=== PATIENT | male | born 1960 | race Caucasian/White ===

== ENCOUNTER → 2016-07-25 | Outpatient (CLI) | payer MEDICARE, OTHER ==
[2016-07-25 13:16] VITALS: BP 139/92; PULSE 81; RESP 18; TEMP 98.3
--- NOTE | 2016-07-25 13:56 | P.PN ---
Subjective This is follow-up visit for this patient with a history of severe and chronic low back pain secondary to lumbar degenerative disc disease , and patient had a history of lumbar fusion surgery, and cervical fusion surgery, L3 is complaining of severe low back pain, with radiation to the left lower extremity , with occasional numbness and tingling sensation, he is able to ambulate, he denies any motor or sensory deficit, he denies any fever or night sweats, no change in the bowel movement or urination, currently is complaining of localized neck pain, but there is no weakness in the upper extremities, and is currently on pain medications 1-oxycodone 15 mg every 6 hours , he tried Neurontin in the past without any benefit and Lyrica and Cymbalta without any benefit , Patient denies any side effects of the medication, denies excessive drowsiness or sleepiness, denies suicidal ideation, and reports that the current pain medication is NOT helping To control the pain and improve activity of daily living Physical Examinations : 1-Constitutiona : Cooperative , not in acute distress . 2-HEENT : nech ; supple , no Lymphadenopathy , no Thyromegaly , normal thyroid size . eyes : no ptosis , no icterus, no photophobia . ENT : normal of hearing , normal oropharynx , no Thrush . 3- Respiratory : Chest clear to auscultations Bilaterally , no wheezing , no Rhonchi . 4- Cardiovascular : regular rate and rhythem , S1 , S2 , no S3 , no S4. 5- Gastrointestinal : abdomen soft no tenderness , bowel sounds positive all four quadrents , no organomegally . 6- Genitourinary : Defferred . 7- neurologic : Cranial nerve II to XII intact , no focal neurological deffecit . 8-psychatric : alert , oriented X 3 , appropriate affect , intact judgment and insight . 9-Lymphatic : no Lymphadenopathy . 10- musculoskeltal : exams of the cervical spine = motor strength normal bilateral upper extremities facet loading test cervical area positive. Positive trigger points in the cervical paravertebral muscles mainly in the right side exams of the Lumber spine = motor strength lower extremities ,thigh and legs .5/5 deep tendon reflexes : normal Knee Jerk , normal ankle Jerk . lumber facet Loading Test positive strait leg raising test positive at 30 degree LT , negative on the right side , Fabere test negative RT and positive LT . 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 Myofascial pain syndrome and cervical area - diagnoses, prognosis, and treatment options including but not limited to physical therapy, surgical interventions, interventional therapies , and medication management including narcotics and adjuvant medication were discussed with the patient and all The questions answered -medication management = issue should continue his medication oxycodone 15 mg every 6 hours (prescription from his primary care ) procedure= patient could benefit from caudal epidural steroid injection with lysis of epidural adhesions which will be done under fluoroscopy guidance, and also patient could benefit from trigger point injections cervical paravertebral muscles Objective - Vital Signs Vital signs: Vital Signs Temp 98.3 F 07/25/16 13:05 Pulse 81 07/25/16 13:05 Resp 18 07/25/16 13:05 BP 139/92 07/25/16 13:05 Pulse Ox Intake & Output 07/24/16 07/25/16 07/25/16 18:59 06:59 18:59 Weight 108.862 kg
== END | disposition home or self-care (01) ==
LOC: PNWHC3 12:43
PROVIDERS: ATTEND Specialist
DX: M96.1 Postlaminectomy syndrome, not elsewhere classified (principal); M79.1 Myalgia; M51.36 Other intervertebral disc degeneration, lumbar region; Z98.1 Arthrodesis status
CPT/HCPCS: 99211

== ENCOUNTER → 2016-09-13 | Outpatient (CLI) | payer MEDICARE, OTHER ==
--- NOTE | 2016-09-13 12:19 | XR ---
EXAMINATION TYPE: XR knee complete LT DATE OF EXAM: 09/13/2016 11:28 AM CLINICAL HISTORY: Sharp pain and difficulty walking. TECHNIQUE: Three views of the left knee are obtained. COMPARISON: Left knee x-ray January 15, 2015 FINDINGS: There is no acute fracture/dislocation evident in left knee. There is mild to moderate tri compartment joint space loss and spurring redemonstrated. The overlying soft tissue appears unremark able. IMPRESSION: There is stable mild to moderate tricompartment degenerative change in the left knee.
== END ==
LOC: RADXRMAIN 11:10
PROVIDERS: ATTEND Family Medicine
DX: M17.12 Unilateral primary osteoarthritis, left knee (principal)

== ENCOUNTER 2016-10-03 06:19 | Day surgery (SDC) | payer MEDICARE, OTHER ==
[2016-09-29 15:15] VITALS: BMI 35.4
[2016-10-03 07:10] VITALS: RESP 16; TEMP 98.5
[2016-10-03] MEDS ORDERED: IOHEXOL 180 MG/ML 1 ML ML ONE (07:43)
[2016-10-03] MEDS ORDERED: TRIAMCINOLONE ACETONIDE 40 MG/ML 1 ML VIAL ONE (07:43)
[2016-10-03] MEDS ORDERED: LACTATED RINGERS 1,000 ML IV SCH (07:45)
[2016-10-03 08:06] VITALS: BP 135/84; PULSE 58
--- NOTE | 2016-10-03 08:32 | FL ---
EXAMINATION TYPE: FL guided pain mgmt statistic DATE OF EXAM: 10/03/2016 8:03 AM CLINICAL HISTORY: Low back and sacral pain. TECHNIQUE: Fluoroscopy. COMPARISON: None. FINDINGS: Fluoroscopic guidance was provided during pain relief procedure performed by Dr. Gordon . A total of 10 seconds of fluoroscopic time was utilized during the procedure and 3 spot images are ac quired. Images acquired shows needle localization at level of lower sacrum from posterior inferior a pproach. There is partial visualization of surgical change in the lower lumbar spine. IMPRESSION: As Above.
--- NOTE | 2016-10-03 08:35 | P.PCN ---
Date of Procedure: 10/03/16 Anesthesia: local Surgeon: Josue Gordon Pathology: none sent Condition: stable Disposition: PACU Description of Procedure: PREOP DIAGNOSIS: Lumbar postlaminectomy syndrome POSTOP DIAGNOSIS: Lumbar postlaminectomy syndrome PROCEDURE: Caudal epidural steroid injection with epidurolysis and epidurogram under fluoroscopic guidance ANESTHESIA: Local with 1% lidocaine EBL: Minimal. PROCEDURE INDICATION: The patient with post-laminectomy syndrome with low back pain and radiculopathy radiating down in both legs, here for a caudal epidural steroid injection with epidurolysis, #2 in series. Patient does not use any blood thinning medications. PROCEDURE DESCRIPTION: The patient was seen and identified in the preoperative area. Risks, benefits, complications, and alternatives were discussed with the patient including but not limited to bleeding, infection, nerve damage, incomplete pain relief, and allergic reactions to medications. The patient agreed to proceed with the procedure and signed the consent after all questions were answered. IV was started, and vital signs were stable. Patient was taken to the OR and time out was completed to verify proper patient , procedure, laterality of pain, and allergies. The patient was placed in the prone position on procedure table and a pillow was placed under the abdomen to reduce lumbar lordosis. The lumbosacral area was prepped and draped in the usual sterile fashion. Critical pause was taken. Vital signs were closely monitored during the procedure. Fluoroscopic camera was placed in the lateral view and the anterior-posterior plates of the sacrum were identified with infiltration of the area overlying the sacral hiatus with 1% lidocaine .A 16 gauge RK epidural needle was used to advance through the sacral hiatus into the caudal epidural space. Omnipaque 300 dye 2cc was injected and the position of the needle was verified to be in the midline. A Racz catheter was introduced into the epidural space and was advanced towards the L5-S1 interspace under direct fluoroscopic guidance. Multiple passes were made with the catheter for lysis of epidural adhesions. Kenalog 40mg with 3ml of preservative free Lidocaine 1% and 6 ml of preservative free normal saline was injected slowly. Additional spread was seen to L3 under fluoroscopy. The needle and the catheter were withdrawn intact. EPIDUROGRAM: Omnipaque 300 dye 2 ml was injected with spread of the dye into the caudal epidural space and with spread cutoff at S1 prior to epidurolysis. Post epidurolysis dye 2 ml was injected and spread was seen to L5.There was further spread of the solution together with the dye above the L4. COMPLICATIONS: None. DISPOSITION / PLANS: The patient was placed in a supine position and transferred to the recovery area in a stable condition for observation and was discharged from the recovery room after meeting discharge criteria. Home discharge instructions given to the patient by the staff. The patient was reexamined prior to discharge. The patient will schedule a third caudal MOSES with lysis in 4-6 weeks. I did not perform any trigger point injections today as the last set done with previous caudal MOSES did not help him at all.
== END 2016-10-03 08:16 | disposition home or self-care (01) ==
LOC: ORPAIN 06:19
PROVIDERS: ATTEND Anesthesiology
DX: M96.1 Postlaminectomy syndrome, not elsewhere classified (principal); Z88.8 Allergy status to other drugs, medicaments and biological substances
CPT/HCPCS: 62264; J3301; Q9965

== ENCOUNTER 2016-11-10 06:39 | Day surgery (SDC) | payer MEDICARE, OTHER ==
[2016-10-26 15:53] VITALS: BMI 35.4
[~2016-11-10 06:39] MED LIST: LACTATED RINGERS 1,000 ML IV SCH
[2016-11-10 06:55] VITALS: TEMP 98
[2016-11-10] MEDS ORDERED: IOHEXOL 180 MG/ML 1 ML ML ONE (07:05)
[2016-11-10] MEDS ORDERED: DEXAMETHASONE SOD PHOS (MDV) 100 MG/10 ML VIAL ONE (07:05)
[2016-11-10] MEDS ORDERED: BUPIVACAINE (PF) 0.5% 30 ML VIAL ONE (07:05)
[2016-11-10 07:49] VITALS: BP 135/83; PULSE 71; RESP 18
--- NOTE | 2016-11-10 07:53 | FL ---
FLUOROSCOPY 14 seconds of fluoroscopy time were utilized during Pain Injection. 2 images document the procedure.
--- NOTE | 2016-11-10 10:39 | P.PCN ---
Date of Procedure: 11/10/16 Preoperative Diagnosis: Postoperative Diagnosis: Procedure(s) Performed: PREOP DIAGNOSIS: 1- Lumbar postlaminectomy syndrome POSTOP DIAGNOSIS:1- Lumbar postlaminectomy syndrome PROCEDURE: Caudal epidural steroid injection with epidurolysis and epidurogram under fluoroscopic guidance ANESTHESIA: Local with bupivacaine 0.5% 5 ML ( pateints wanted NO sedations ) EBL: Minimal. PROCEDURE INDICATION: The patient with post-laminectomy syndrome with low back pain and radiculopathy radiating down in both legs, here for a caudal epidural steroid injection with epidurolysis. PROCEDURE DESCRIPTION: The patient was seen and identified in the preoperative area. Risks, benefits, complications, and alternatives were discussed with the patient. The patient agreed to proceed with the procedure and signed , and vital signs were stable. Patient was taken to the OR and time out was completed. The patient was placed in the prone position on procedure table and a pillow was placed under the abdomen to reduce lumbar lordosis. The lumbosacral area was prepped and draped in the usual sterile fashion. Vital signs were closely monitored during the procedure. lateral view and the anterior-posterior plates of the sacrum were identified with infiltration of the area overlying the sacral hiatus with bupivacaine 0.5% .A 17 gauge RK epidural needle was used to advance through the sacral hiatus into the caudal epidural space. Omnipaque 180 dye. 2cc was injected and the position of the needle was verified to be in the midline. A Racz catheter was introduced into the epidural space and was advanced towards the L5-S1 interspace under direct fluoroscopic guidance. Multiple passes were made with the catheter for lysis of epidural adhesions. Kenalog 80 mg with 3ml of preservative free bupivacaine 0.5% 2 ml and 5 ml of preservative free normal saline was injected slowly. Additional spread was seen to L4 under fluoroscopy. The needle and the catheter were withdrawn intact. EPIDUROGRAM: Omnipaque 180 mg dye 2 ml was injected with spread of the dye into the caudal epidural space and with spread cutoff at L5 prior to epidurolysis. Post epidurolysis dye 2 ml was injected and spread was seen to L3- 4.There was further spread of the solution together with the dye above the L3 COMPLICATIONS: None. DISPOSITION / PLANS: The patient was placed in a supine position and transferred to the recovery area in a stable condition for observation and was discharged from the recovery room after meeting discharge criteria. Home discharge instructions given to the patient by the staff. The patient was reexamined prior to discharge. The patient will schedule a follow up in the clinic in 2-4 weeks. Implants: Indications for Procedure: Operative Findings: Description of Procedure:
== END 2016-11-10 08:02 | disposition home or self-care (01) ==
LOC: ORPAIN 06:39
PROVIDERS: ATTEND Specialist
DX: M96.1 Postlaminectomy syndrome, not elsewhere classified (principal)
CPT/HCPCS: 62264; Q9965; J1100

== ENCOUNTER 2017-01-16 08:44 | Day surgery (SDC) | payer MEDICARE, OTHER ==
[2017-01-11 14:53] VITALS: BMI 36.5
[2017-01-16 09:14] VITALS: RESP 18; TEMP 97.9
[2017-01-16] MEDS ORDERED: LIDOCAINE 1% 20 ML VIAL (10MG/ML) FOR IV START INTRADERMA ONE (09:20)
[2017-01-16] MEDS ORDERED: PROPOFOL 10 MG/ML 20 ML VIAL IV ONE (09:32)
[2017-01-16] MEDS ORDERED: LIDOCAINE 1% INJ 10MG/ML (20 ML MDV) ONE (09:32)
--- NOTE | 2017-01-16 09:34 | P.GSHP ---
History of Present Illness H&P Date: 01/16/17 Chief Complaint: Screening colonoscopy This is a 56-year-old male referred from Dr. Armas. Patient resents today for screening colonoscopy. He denies any significant GI complaints. Past Medical History Past Medical History: Chest Pain / Angina, GERD/Reflux, Hyperlipidemia, Hypertension, Osteoarthritis (OA), Sleep Apnea/CPAP/BIPAP Additional Past Medical History / Comment(s): Chronic back pain and problems. Does not use CPAP. no current problems w/chest pain History of Any Multi-Drug Resistant Organisms: MRSA Date of last positivie culture/infection: 2011 MDRO Source:: ABD. Past Surgical History: Appendectomy, Back Surgery, Cholecystectomy, Heart Catheterization, Hernia Repair, Orthopedic Surgery Additional Past Surgical History / Comment(s): Posterior lumbar decompression and fusion transforaminal lumbar interbody fusion L4-5. NECK AND LT SHOULDER SURG. Past Anesthesia/Blood Transfusion Reactions: No Reported Reaction Additional Past Anesthesia/Blood Transfusion Reaction / Comment(s): NO FAMILY HX KNOWN - pt adopted. Smoking Status: Never smoker - Past Family History Father Family Medical History: Unable to Obtain Additional Family Medical History / Comment(s): Pt was adopted. Mother Family Medical History: Unable to Obtain Additional Family Medical History / Comment(s): Pt was adopted. Medications and Allergies Home Medications Medication Instructions Recorded Confirmed Type QUEtiapine [SEROquel] 50 mg PO HS 01/13/14 01/16/17 History Sertraline HCl 100 mg PO DAILY 07/16/14 01/16/17 History oxyCODONE HCL [oxyCODONE HCL] 15 mg PO QID 10/05/15 01/16/17 History Allergies Allergy/AdvReac Type Severity Reaction Status Date / Time lorazepam Allergy AGITATION Verified 01/11/17 14:45 Surgical - Exam Vital Signs Temp Pulse Resp BP Pulse Ox 97.9 F 87 18 136/91 97 01/16/17 09:13 01/16/17 09:13 01/16/17 09:13 01/16/17 09:13 01/16/17 09:13 - General well developed, no distress - Eyes PERRL - ENT normal pinna - Neck no masses - Respiratory normal expansion - Cardiovascular Rhythm: regular - Abdomen Abdomen: soft, non tender Assessment and Plan Plan: We'll perform screening colonoscopy.
--- NOTE | 2017-01-16 09:57 | P.OP ---
Date of Procedure: 01/16/17 Preoperative Diagnosis: Screening colonoscopy Postoperative Diagnosis: Right colon polyp Procedure(s) Performed: Colonoscopy Implants: Anesthesia: MAC Surgeon: Tong Lee Pathology: other (Right colon polyp) Condition: stable Disposition: PACU Indications for Procedure: Operative Findings: Description of Procedure: The patient's placed on the endoscopy table lateral position. He received IV sedation. Digital rectal exam was performed which revealed no abnormalities. The prostate was symmetric without nodules. The flexible colonoscope was then placed patient anus and passed throughout the colon. The colon was quite tortuous. The ileocecal valve was not visualized. The scope slowly be advanced into the proximal right colon. In the right colon there was a small sessile polyp was removed the forcep. Scope was withdrawn and the remainder of the ascending colon, transverse colon and descending colon appeared normal. The scope was then brought back the sigmoid colon this appeared normal. Scope was withdrawn from patient and the rectum was normal. Scope was then removed from the patient.
[2017-01-16 10:16] VITALS: BP 127/86; PULSE 79
== END 2017-01-16 10:55 | disposition home or self-care (01) ==
LOC: ORWHC2ENDO 08:44
PROVIDERS: ATTEND Surgery
DX: Z12.11 Encounter for screening for malignant neoplasm of colon (principal); D12.2 Benign neoplasm of ascending colon; Q43.8 Other specified congenital malformations of intestine; G47.30 Sleep apnea, unspecified; Z79.891 Long term (current) use of opiate analgesic; Z79.899 Other long term (current) drug therapy; Z88.8 Allergy status to other drugs, medicaments and biological substances
CPT/HCPCS: 88305; 45380; J2001; J2704

== ENCOUNTER 2017-09-05 16:15 | Emergency (ER) | payer MEDICARE, OTHER ==
[2017-09-05 16:24] VITALS: TEMP 98.6
[2017-09-05] MEDS ORDERED: MORPHINE SULFATE 4 MG/ML SYRINGE IM STA (16:36)
[2017-09-05] MEDS ORDERED: KETOROLAC 60 MG/2 ML VIAL IM STA (16:36)
[2017-09-05] MEDS ORDERED: DIAZEPAM 5 MG TAB PO STA (16:36)
--- NOTE | 2017-09-05 16:49 | ED ---
General Adult HPI - General Chief complaint: Neck Pain/Injury Stated complaint: Neck pain Time Seen by Provider: 09/05/17 16:27 Source: patient, RN notes reviewed Mode of arrival: ambulatory Limitations: no limitations - History of Present Illness Initial comments: Patient 56-year-old male significant past medical history for chronic neck pain , presents into the emergency room today with a chief complaint of increased pain and stiffness to his neck. States he began feeling a little bit last night before going to bed. States he woke up around 2 AM with increased pain. He states worse with any movements of rotation of the neck. Patient states he did take his oxycodone with little relief the symptoms. Patient denies any other complaints or symptoms. Some chronic numbness tingling going down into the hands and is not a new finding. He denies any injury or trauma. Patient denies any recent fever, chills, shortness of breath, chest pain, back pain, abdominal pain, nausea or vomiting, headaches or visual changes, or any other complaints. - Related Data Home Medications Medication Instructions Recorded Confirmed oxyCODONE HCL [oxyCODONE HCL] 15 mg PO QID 10/05/15 09/05/17 Bisoprol/Hydrochlorothiazide 1 tab PO DAILY 09/05/17 09/05/17 [Bisoprolol-Hctz 5-6.25 mg Tab] Previous Rx's Medication Instructions Recorded Cyclobenzaprine [Flexeril] 10 mg PO TID #20 tab 09/05/17 Dexamethasone 0.75 mg PO DIRECTED #12 tablet 09/05/17 Ibuprofen [Motrin] 800 mg PO Q6HR #30 tab 09/05/17 Allergies Allergy/AdvReac Type Severity Reaction Status Date / Time lorazepam Allergy AGITATION Verified 09/05/17 16:45 Review of Systems ROS Statement: Those systems with pertinent positive or pertinent negative responses have been documented in the HPI. ROS Other: All systems not noted in ROS Statement are negative. Past Medical History Past Medical History: Chest Pain / Angina, GERD/Reflux, Hyperlipidemia, Hypertension, Osteoarthritis (OA), Sleep Apnea/CPAP/BIPAP Additional Past Medical History / Comment(s): Chronic back pain and problems. Does not use CPAP. no current problems w/chest pain History of Any Multi-Drug Resistant Organisms: MRSA Date of last positivie culture/infection: 2011 MDRO Source:: ABD. Past Surgical History: Appendectomy, Back Surgery, Cholecystectomy, Heart Catheterization, Hernia Repair, Orthopedic Surgery Additional Past Surgical History / Comment(s): Posterior lumbar decompression and fusion transforaminal lumbar interbody fusion L4-5. NECK AND LT SHOULDER SURG. Past Anesthesia/Blood Transfusion Reactions: No Reported Reaction Additional Past Anesthesia/Blood Transfusion Reaction / Comment(s): NO FAMILY HX KNOWN - pt adopted. Past Psychological History: Depression Smoking Status: Never smoker Past Alcohol Use History: Occasional Past Drug Use History: None Reported - Past Family History Father Family Medical History: Unable to Obtain Additional Family Medical History / Comment(s): Pt was adopted. Mother Family Medical History: Unable to Obtain Additional Family Medical History / Comment(s): Pt was adopted. General Exam - General Exam Comments Initial Comments: General: The patient is awake and alert, in no distress, and does not appear acutely ill. Eye: Pupils are equal, round and reactive to light, extra-ocular movements are intact. No nystagmus. There is normal conjunctiva bilaterally. No signs of icterus. Ears, nose, mouth and throat: There are moist mucous membranes and no oral lesions. Neck: The neck is supple, there is no tenderness or JVD. Cardiovascular: There is a regular rate and rhythm. No murmur, rub or gallop is appreciated. Respiratory: Lungs are clear to auscultation, respirations are non-labored, breath sounds are equal. No wheezes, stridor, rales, or rhonchi. Musculoskeletal: Patient has limited range of motion of the cervical spine due to pain. Pain reproduced with rotation to the left and right. Strength 5/5. Sensation intact. Pulses equal bilaterally 2+. Neurological: A&O x 3. CN II-XII intact, There are no obvious motor or sensory deficits. Coordination appears grossly intact. Speech is normal. Skin: Skin is warm and dry and no rashes or lesions are noted. Psychiatric: Cooperative, appropriate mood & affect, normal judgment. Limitations: no limitations Course Vital Signs 09/05/17 16:23 Temperature 98.6 F Pulse Rate 126 H Respiratory 24 Rate Blood Pressure 139/97 O2 Sat by Pulse 96 Oximetry Medical Decision Making - Medical Decision Making Patient reexamined at this time shows no signs of distress. Patient does admit to improvement after morphine, Toradol, Valium here in emergency room. Patient' s pain is worse with rotation. There was no injury or trauma. His x-rays are unremarkable. He does plan to follow-up with his orthopedic doctor has an appointment this coming Sunday. At this time patient's symptoms are improving. Will be continued on muscle relaxers, anti-inflammatories, given a steroid for the inflammation. He does have pain medication of oxycodone at home that he can use. Advised return here to the emergency room if any symptoms increase worsen or for any other concerns. Disposition Clinical Impression: Torticollis Disposition: HOME SELF-CARE Condition: Good Instructions: Spasmodic Torticollis (ED) Additional Instructions: Please use medication as discussed. Please follow-up with orthopedic/family doctor in the next 2 days of symptoms have not improved. Please return to emergency room if the symptoms increase or worsen or for any other concerns. Prescriptions: Cyclobenzaprine [Flexeril] 10 mg PO TID #20 tab Dexamethasone 0.75 mg PO DIRECTED #12 tablet Ibuprofen [Motrin] 800 mg PO Q6HR #30 tab Referrals: Son Armas MD [Primary Care Provider] - 1-2 days Time of Disposition: 17:57
--- NOTE | 2017-09-05 17:10 | XR ---
PROCEDURE: XR cervical spine limited, 3V DATE AND TIME: 09/05/2017 5:04 PM REFERRING PHYSICIAN: Maxwell Damian CLINICAL INDICATION: PHH, Pain TECHNIQUE: Open-mouth odontoid, lateral, and AP views. COMPARISON: None FINDINGS: C4-7 anterior fusion with fusion plate hardware noted. The hardware is intact. There is no malalignment. No evidence of fracture. No incidental findings. IMPRESSION: NO ACUTE PROCESS.
[2017-09-05 18:08] VITALS: BP 136/89; PULSE 110; RESP 18
== END 2017-09-05 18:05 | disposition home or self-care (01) ==
LOC: EC 16:15
DX: M43.6 Torticollis (principal); R20.2 Paresthesia of skin; R20.0 Anesthesia of skin; I10 Essential (primary) hypertension; G89.29 Other chronic pain; Z79.891 Long term (current) use of opiate analgesic; Z79.899 Other long term (current) drug therapy; Z88.8 Allergy status to other drugs, medicaments and biological substances; Z86.14 Personal history of Methicillin resistant Staphylococcus aureus infection; Z98.890 Other specified postprocedural states
CPT/HCPCS: 72040; 99283; 96372 ×2; J2270; J1885

== ENCOUNTER 2017-12-26 21:04 | Emergency (ER) | payer MEDICARE, OTHER ==
[2017-12-26 21:44] VITALS: BP 126/81; PULSE 108; RESP 17; TEMP 98.2
--- NOTE | 2017-12-27 11:18 | XR ---
EXAMINATION TYPE: XR foot limited RT DATE OF EXAM: 12/27/2017 CLINICAL HISTORY: Penetrating injury rule out foreign body TECHNIQUE: Frontal and lateral images of the right foot are obtained. COMPARISON: None FINDINGS: There is no acute fracture/dislocation evident in the right foot. There is marked flexion of the distal second through fifth toes. There is advanced joint space loss first metatarsophalangeal joint. Unfused apophysis near medial proximal navicular is present. The overlying soft tissue appear s unremarkable without radiodense foreign body identified. Tiny inferior calcaneal spur noted IMPRESSION: There is no metallic soft tissue foreign body identified.
== END 2017-12-26 23:30 | disposition home or self-care (01) ==
LOC: EC 21:04
DX: S91.331A Puncture wound without foreign body, right foot, initial encounter (principal); Z23 Encounter for immunization; W22.8XXA Striking against or struck by other objects, initial encounter; Y92.89 Other specified places as the place of occurrence of the external cause
CPT/HCPCS: 90471; 99283

== ENCOUNTER → 2018-04-30 | Outpatient (CLI) | payer MEDICARE, OTHER ==
[2018-04-30 12:11] VITALS: BP 117/82; PULSE 73; RESP 18
--- NOTE | 2018-04-30 12:46 | P.PAINPG ---
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, and he is complaining of severe neck pain with radiation to the upper extremity associated with numbness and tingling sensation, patient had cervical fusion surgery done several years ago We have done an interventional pain procedure Caudal Epidural steroid injection with lysis of epidural adhesions and he had excellent pain relief after the injection The patient currently on oxycodone 15 mg every 6 hours , Motrin 800 mg every 8 hours Patient denies any side effect of the medication , patient denies any excessive drowsiness or sleepiness, patient denies any suicidal ideation, Patient reported that the current medication is helping to control the pain and improve the activity of daily livings, Patient denies any motor or sensory deficit, denies any change in the bowel movement or urination, patient denies any fever or night sweats. Objective - Vital Signs Vital signs: Vital Signs Temp Pulse 73 04/30/18 12:04 Resp 18 04/30/18 12:04 BP 117/82 04/30/18 12:04 Pulse Ox 95 04/30/18 12:04 Intake & Output 04/29/18 04/30/18 04/30/18 18:59 06:59 18:59 Weight 113.398 kg - Exam Physical Examinations : 1-Constitutiona : Cooperative , not in acute distress . 2-HEENT : nech ; supple , no Lymphadenopathy , normal thyroid size . eyes : no ptosis , no icterus, no photophobia . ENT : normal of hearing , normal oropharynx , no Thrush . 3- Respiratory : Chest clear to auscultations Bilaterally , no wheezing , no Rhonchi . 4- Cardiovascular : regular rate and rhythem , S1 , S2 , no S3 , no S4. 5- Gastrointestinal : abdomen soft no tenderness , bowel sounds , no organomegally . 6- Genitourinary : Defferred . 7- neurologic : Cranial nerve II to XII intact , no focal neurological deffecit . 8-psychatric : alert , oriented X 3 , appropriate affect , intact judgment and insight . 9-Lymphatic : no Lymphadenopathy . 10- musculoskeltal : Cervical Spine motor stregnth in the deltoid and biceps, normal right side , normal Left side motor stregnth biceps and the wrist extensors normal right side ,normal left side . motor stregnth in the triceps muscle . normal Right side , normal Left side deep tendon reflexes normal at the biceps , normal at Brachioradialis , normal at triceps. positive cervical facet loading test . Lumber spine moter stegnth lower extremities , thigh and legs 5/5 Right side , 5/5 Left side deep tendon reflexes : normal Knee Jerk , normal ankle Jerk positive lumber facet Loading Test Range of motion of the lumbar spine Flexion 30 degrees, extension 10 degrees strait leg raising test , positive at 30 degree left side, negative on the right side Fabere test positive RT and positive LT . Assessment and Plan Plan: Assessment and plan= chronic low back pain secondary to lumbar failed back surgery syndrome Chronic neck pain secondary to failed back surgery syndrome cervical area Patient will be good candidate to have caudal epidural steroid injections with lysis of epidural adhesions , procedure risk and benefits and alternatives discussed with the patient he agreed with the preceding, in the future patient will be good candidate to have cervical epidural steroid injection. Patient currently using Motrin 800 mg every 8 hours when necessary and oxycodone 15 mg every 6 hours , is getting prescription refills from his primary care and he denies any side effect of the medication. Time with Patient: Less than 30 PQRS Measure Charge Sheet Measure #130: Documentation of Current Meds in Medical Chart: Patient's medications documented in chart Measure #226: Tobacco Use: Screen & Cessation Intervention: Pt screened for tobacco use AND intervention given Measure #111: Pneumonia Vaccination: Pneumococcal vaccine NOT administered or previously given Measure #47: Advance Care Plan: Advance care planning discussed & documented, pt chose/unable to give Measure #412: Opioid Treatment Agreement: No documentation of signed opioid treatment agreement Measure #408: Opioid Therapy Follow-up Evaluation: Patient had NO f/u eval minimum every 3 months during opioid therapy Measure #317: Preventitive Care & Scrn High Bld Press & F/U: Normal blood pressure, f/u not required Measure #128: Body Mass Index (BMI) Screening & Follow-up: BMI documented ABOVE normal parameters - f/u documented Measure #131: Pain Assessment & Follow-up: Pain positive & plan documented, Follow-up scheduled Measure #431: Unhealthy Alcohol Use Preventative Care & Scrn: Patient not identified as an unhealthy alcohol user PQRS Narrative: Smoking Status Never smoker Do You Want the Pneumonia No Vaccine AT THIS TIME? Narcotic Agreement Date Signed 10/21/12 Blood Pressure 117/82 Pain Intensity [Neck] 3 Pain Intensity [Left Lower 7 Back] Home Medications: Ambulatory Orders oxyCODONE HCL 15 mg PO QID 10/05/15 Bisoprol/Hydrochlorothiazide [Bisoprolol-Hctz 5-6.25 mg Tab] 1 tab PO DAILY 09/19 Ibuprofen [Motrin] 800 mg PO Q6HR #30 tab 09/05/17 Diazepam [Valium] 2 mg PO BID 04/30/18 Mirabegron [Myrbetriq] 10 mg PO DAILY 04/30/18 Controlled Substance Measures - Controlled Substance Measures Is patient prescribed a controlled substance at discharge?: No When asked, does pt state using other controlled substances?: No If prescribed controlled substance>3 days was MAPS reviewed?: No If Rx opioid, was Start Talking consent form obtained?: No If opioid is for acute pain is fill amount 7 days or less?: No Was information provided regarding opioid addiction?: No
== END ==
LOC: PNWHC3 11:37
PROVIDERS: ATTEND Specialist
DX: G89.29 Other chronic pain (principal); M96.1 Postlaminectomy syndrome, not elsewhere classified; Z79.891 Long term (current) use of opiate analgesic; Z79.1 Long term (current) use of non-steroidal anti-inflammatories (NSAID); Z79.899 Other long term (current) drug therapy
CPT/HCPCS: 99211

== ENCOUNTER → 2018-05-01 | Day surgery (SDC) | payer MEDICARE, OTHER ==
[2018-05-01 09:41] VITALS: RESP 18; TEMP 97.9
[2018-05-01 10:40] VITALS: BP 133/91; PULSE 72
--- NOTE | 2018-05-01 10:43 | FL ---
EXAMINATION TYPE: FL guided pain mgmt statistic DATE OF EXAM: 05/01/2018 HISTORY: Pain 7 sec fluoro. 2 images scanned.
--- NOTE | 2018-05-01 13:24 | P.PCN ---
Date of Procedure: 05/01/18 Surgeon: Surjit Griffiths Description of Procedure: Procedure= caudal epidural steroid injection with lysis of epidural adhesions under fluoroscopy guidance. Preoperative diagnosis=1-failed back surgery syndrome lumbar area. 2 lumbar degenerative disc disease 3-lumbar radiculopathy Postoperative diagnosis= same Anesthesia= IV sedation with Versed and fentanyl , and local infiltration with lidocaine 1% 3 mL for skin and subcutaneous tissue infiltrations. Fluoroscopy time= 3 seconds Description of the procedure= procedure risk and benefits discussed with the patient, including but not limited to risk of infection and bleeding and ALLERGIC reaction to the medication and no complete pain relief discussed with the patient and he, she agreed with preceding. patient taken to the operating room, placed in prone position standard monitors applied, then after induction of anesthesia the lumbar and the caudal Area prepped with chlorhexidine X3 , then the under fluoroscopy guidance, local infiltration of the skin and subcu tissuel at the caudal hiatus area, then a 17-gauge Touhy needle advanced slowly under fluoroscopy and passed through the cauda hiatus and advanced to the epidural space, there was positive loss of resistance to normal saline, no heme, no paresthesia, no cerebrospinal fluid, then after negative aspiration Omnipaque 180 mg per mL and 3 mL injected that showed possible spread in the epidural space, no intrathecal spread, then 22 mariann Racz catheter advanced slowly through the needle up to L 3-4 interlaminar space , and I was able to break the scar tissue by advancing and withdrawing the catheter multiple times ,and after all this done, mixture of lidocaine 1% 2 mL +10 mL of preservative-free normal saline +80 mg of depomedrol mixed together , and injected epidurally after negative aspiration patient tolerated the procedure well without any complication and patient will follow up with up in the pain clinic within 3 weeks.
--- NOTE | 2018-05-03 09:51 | CDI ---
Date: 05/03/18 CDS/Design Specialist Name: Susan Fernandes Phone: If any questions, call Beckie Zuniga Supervisor Chassis Assembly at [phone] Patient Name: Dell Mauricio Admit Date: 05/01/18 Discharge Date: 05/01/18 ATTENTION: The [facility] Coding Staff appreciate your assistance in clarifying documentation. Please respond to the clarification below the line at the bottom and electronically sign. The [facility] Coding staff will review the response and follow-up if needed. Please note: Queries are made part of the Legal Health Record. If you have any questions, please contact the Supervisor Chassis Assembly. Dear Dr. Griffiths, Please provide clarification as to what type of sedation was used. Please clarify if the sedation was Moderate/Conscious or Unconscious sedation, Thank you for your kind consideration. conscious sedation was used MTDD
== END ==
LOC: ORPAIN 08:53
PROVIDERS: ATTEND Pain Medicine Pain Medicine
DX: M96.1 Postlaminectomy syndrome, not elsewhere classified (principal); M51.16 Intervertebral disc disorders with radiculopathy, lumbar region; G96.12 Meningeal adhesions (cerebral) (spinal); Z88.8 Allergy status to other drugs, medicaments and biological substances
CPT/HCPCS: 62264; J1030; Q9966; 99152

== ENCOUNTER 2018-05-20 06:18 | Day surgery (SDC) | payer MEDICARE, OTHER ==
[2018-05-17 11:59] VITALS: BMI 38.0
[~2018-05-20 06:18] MED LIST changes: -LACTATED RINGERS 1,000 ML IV SCH; +SODIUM CHLORIDE 0.9% 500 ML 500 ML IV SCH
[2018-05-20 07:07] VITALS: RESP 16; TEMP 98.3
--- NOTE | 2018-05-20 07:48 | P.PCN ---
Date of Procedure: 05/20/18 Procedure(s) Performed: PREOP DIAGNOSIS: 1- Lumbar postlaminectomy syndrome POSTOP DIAGNOSIS:1- Lumbar postlaminectomy syndrome PROCEDURE: Caudal epidural steroid injection with epidurolysis and epidurogram under fluoroscopic guidance ANESTHESIA: Local with bupivacaine 0.5% 5 ML ( pateints wanted NO sedations ) EBL: Minimal. PROCEDURE INDICATION: The patient with post-laminectomy syndrome with low back pain and radiculopathy radiating down in both legs, here for a caudal epidural steroid injection with epidurolysis. PROCEDURE DESCRIPTION: The patient was seen and identified in the preoperative area. Risks, benefits, complications, and alternatives were discussed with the patient. The patient agreed to proceed with the procedure and signed , and vital signs were stable. Patient was taken to the OR and time out was completed. The patient was placed in the prone position on procedure table and a pillow was placed under the abdomen to reduce lumbar lordosis. The lumbosacral area was prepped and draped in the usual sterile fashion. Vital signs were closely monitored during the procedure. lateral view and the anterior-posterior plates of the sacrum were identified with infiltration of the area overlying the sacral hiatus with bupivacaine 0.5% .A 17 gauge RK epidural needle was used to advance through the sacral hiatus into the caudal epidural space. Isoview 200 dye. 2cc was injected and the position of the needle was verified to be in the midline. A Racz catheter was introduced into the epidural space and was advanced towards the L5-S1 interspace under direct fluoroscopic guidance. Multiple passes were made with the catheter for lysis of epidural adhesions. Depo-Medrol 80 mg with 3ml of preservative free bupivacaine 0.5% 2 ml and 5 ml of preservative free normal saline was injected slowly. Additional spread was seen to L4 under fluoroscopy. The needle and the catheter were withdrawn intact. EPIDUROGRAM: Omnipaque 180 mg dye 2 ml was injected with spread of the dye into the caudal epidural space and with spread cutoff at L5 prior to epidurolysis. Post epidurolysis dye 2 ml was injected and spread was seen to L3- 4.There was further spread of the solution together with the dye above the L3 COMPLICATIONS: None. DISPOSITION / PLANS: The patient was placed in a supine position and transferred to the recovery area in a stable condition for observation and was discharged from the recovery room after meeting discharge criteria. Home discharge instructions given to the patient by the staff. The patient was reexamined prior to discharge. The patient will schedule a follow up in the clinic in 2-4 weeks. Implants:
[2018-05-20 07:56] VITALS: BP 123/71; PULSE 70
--- NOTE | 2018-05-20 08:36 | FL ---
EXAMINATION TYPE: FL guided pain mgmt statistic DATE OF EXAM: 05/20/2018 FLUOROSCOPY Fluoroscopy time of 13 seconds was used during caudal epidural with lysis. 2 image/s document/s the procedure.
== END 2018-05-20 08:08 | disposition home or self-care (01) ==
LOC: ORPAIN 06:18
PROVIDERS: ATTEND Specialist
DX: M96.1 Postlaminectomy syndrome, not elsewhere classified (principal); Z88.8 Allergy status to other drugs, medicaments and biological substances
CPT/HCPCS: 62264; J1030; Q9966

== ENCOUNTER 2018-08-03 15:25 | Emergency (ER) | payer MEDICARE, OTHER ==
[2018-08-03 15:32] VITALS: RESP 18
[2018-08-03] MEDS ORDERED: ONDANSETRON 4 MG/2 ML VIAL IVP STA (15:44)
[2018-08-03] MEDS ORDERED: SODIUM CHLORIDE 0.9% 1,000 ML IV STA ×3 (15:44→18:13)
[2018-08-03] MEDS ORDERED: SODIUM CHLORIDE 0.9% 2,000 ML IV STA (15:44)
--- NOTE | 2018-08-03 15:48 | ED ---
Nausea/Vomiting/Diarrhea HPI - General Chief complaint: Nausea/Vomiting/Diarrhea Stated complaint: NVD Time Seen by Provider: 08/03/18 15:37 Source: patient, RN notes reviewed, old records reviewed Mode of arrival: ambulatory Limitations: no limitations - History of Present Illness Initial comments: This is a 57-year-old male history of multiple medical issues can be gleaned from the chart who had gastric diarrhea yesterday with multiple episodes nausea vomiting. Has had fever for last evening. He denies any rhinorrhea cough sore throat earaches or cough he's had multiple episodes of nausea vomiting diarrhea. No recent antibiotic use no known contact with anyone with [facility] that he is aware of. Minimal abdominal discomfort. He feels tired and has no energy. No overt dizziness or palpitations. MD complaint: nausea, vomiting, diarrhea - Related Data Home Medications Medication Instructions Recorded Confirmed oxyCODONE HCL 15 mg PO QID 10/05/15 05/20/18 Bisoprol/Hydrochlorothiazide 1 tab PO DAILY 09/05/17 05/20/18 [Bisoprolol-Hctz 5-6.25 mg Tab] Diazepam [Valium] 2 mg PO BID 04/30/18 05/20/18 Mirabegron [Myrbetriq] 10 mg PO DAILY 04/30/18 05/20/18 Previous Rx's Medication Instructions Recorded Ondansetron Odt [Zofran Odt] 4 mg PO Q8HR PRN #10 tab 08/03/18 Allergies Allergy/AdvReac Type Severity Reaction Status Date / Time lorazepam Allergy AGITATION Verified 08/03/18 15:28 Review of Systems ROS Statement: Those systems with pertinent positive or pertinent negative responses have been documented in the HPI. ROS Other: All systems not noted in ROS Statement are negative. Past Medical History Past Medical History: Chest Pain / Angina, GERD/Reflux, Hyperlipidemia, Hypertension, Osteoarthritis (OA), Sleep Apnea/CPAP/BIPAP Additional Past Medical History / Comment(s): Chronic back pain and problems. Does not use CPAP. no current problems w/chest pain, USES CANE PRN. History of Any Multi-Drug Resistant Organisms: MRSA Date of last positivie culture/infection: 2011 MDRO Source:: ABD. Past Surgical History: Appendectomy, Back Surgery, Cholecystectomy, Heart Catheterization, Hernia Repair, Orthopedic Surgery Additional Past Surgical History / Comment(s): Posterior lumbar decompression and fusion transforaminal lumbar interbody fusion L4-5. NECK AND LT SHOULDER SURG. Past Anesthesia/Blood Transfusion Reactions: No Reported Reaction Additional Past Anesthesia/Blood Transfusion Reaction / Comment(s): NO FAMILY HX KNOWN - pt adopted. Past Psychological History: Depression Smoking Status: Never smoker Past Alcohol Use History: Occasional Past Drug Use History: None Reported - Past Family History Father Family Medical History: Unable to Obtain Additional Family Medical History / Comment(s): Pt was adopted. Mother Family Medical History: Unable to Obtain Additional Family Medical History / Comment(s): Pt was adopted. General Exam - General Exam Comments Initial Comments: This is a well-developed well-nourished awake alert oriented 3 male Limitations: no limitations General appearance: alert, in no apparent distress Head exam: Present: atraumatic, normocephalic, normal inspection Eye exam: Present: normal appearance, PERRL, EOMI. Absent: scleral icterus, conjunctival injection, periorbital swelling ENT exam: Present: mucous membranes dry, normal external ear exam, other (No oral pharyngeal hyperemia or exudate.) Neck exam: Present: normal inspection, full ROM, other. Absent: tenderness, meningismus, lymphadenopathy Respiratory exam: Present: normal lung sounds bilaterally. Absent: respiratory distress, wheezes, rales, rhonchi, stridor Cardiovascular Exam: Present: normal rhythm, tachycardia GI/Abdominal exam: Present: soft, normal bowel sounds. Absent: distended, tenderness, guarding, rebound, rigid, bruit, pulsatile mass Extremities exam: Present: normal inspection, full ROM, normal capillary refill. Absent: tenderness, pedal edema, joint swelling, calf tenderness Back exam: Present: normal inspection Neurological exam: Present: alert, oriented X3, CN II-XII intact Psychiatric exam: Present: normal affect, normal mood Skin exam: Present: warm, dry, intact, normal color. Absent: rash Course Vital Signs 08/03/18 08/03/18 15:28 18:08 Temperature 98.6 F 98.1 F Pulse Rate 109 H 104 H Respiratory 18 18 Rate Blood Pressure 115/79 137/91 O2 Sat by Pulse 94 L 95 Oximetry Medical Decision Making - Medical Decision Making I did reevaluate patient several occasions he is feeling improved after IV hydration. He does demonstrate evidence of dehydration as well as a viral gastroenteritis. He will be discharged with instructions to increase oral fluids and medication for nausea and Lomotil. He is a follow-up with his doctor return when necessary - Lab Data Result diagrams: 08/03/18 16:00 08/03/18 16:00 Lab Results 08/03/18 08/03/18 08/03/18 Range/Units 16:00 16:00 16:00 WBC 8.6 (3.8-10.6) k/uL RBC 5.34 (4.30-5.90) m/uL Hgb 15.4 (13.0-17.5) gm/dL Hct 47.0 (39.0-53.0) % MCV 88.0 (80.0-100.0) fL MCH 28.8 (25.0-35.0) pg MCHC 32.8 (31.0-37.0) g/dL RDW 14.3 (11.5-15.5) % Plt Count 231 (150-450) k/uL Neutrophils % 69 % Lymphocytes % 15 % Monocytes % 9 % Eosinophils % 5 % Basophils % 0 % Neutrophils # 5.9 (1.3-7.7) k/uL Lymphocytes # 1.3 (1.0-4.8) k/uL Monocytes # 0.8 (0-1.0) k/uL Eosinophils # 0.4 (0-0.7) k/uL Basophils # 0.0 (0-0.2) k/uL Sodium 138 (137-145) mmol/L Potassium 5.4 H (3.5-5.1) mmol/L Chloride 111 H (98-107) mmol/L Carbon Dioxide 17 L (22-30) mmol/L Anion Gap 10 mmol/L BUN 31 H (9-20) mg/dL Creatinine 1.27 H (0.66-1.25) mg/dL Est GFR (CKD-EPI)AfAm 72 (>60 ml/min/1.73 sqM) Est GFR (CKD-EPI)NonAf 62 (>60 ml/min/1.73 sqM) Glucose 126 H (74-99) mg/dL Calcium 9.7 (8.4-10.2) mg/dL Total Bilirubin 0.8 (0.2-1.3) mg/dL AST 26 (17-59) U/L ALT 30 (21-72) U/L Alkaline Phosphatase 74 (38-126) U/L Total Protein 7.0 (6.3-8.2) g/dL Albumin 4.1 (3.5-5.0) g/dL Amylase 35 (30-110) U/L Lipase 26 (23-300) U/L Influenza Type A RNA Not Detected (Not Detectd) Influenza Type B (PCR) Not Detected (Not Detectd) - Radiology Data Radiology results: report reviewed (I did review the imaging and report no acute findings are seen there is some suggestion of ileus.), image reviewed Disposition Clinical Impression: Gastroenteritis, Viral syndrome, Dehydration, Renal insufficiency Disposition: HOME SELF-CARE Condition: Good Instructions (If sedation given, give patient instructions): Acute Nausea and Vomiting (ED), Acute Diarrhea (ED), Dehydration (ED), Viral Syndrome (ED) Prescriptions: Ondansetron Odt [Zofran Odt] 4 mg PO Q8HR PRN #10 tab PRN Reason: Nausea Is patient prescribed a controlled substance at d/c from ED?: No Referrals: Son Armas MD [Primary Care Provider] - 1-2 days
[2018-08-03 16:20] LABS: Basophils % (A) 0 %; Eosinophils # (A) 0.4 k/uL (0-0.7); Eosinophils % (A) 5 %; HGB 15.4 gm/dL (13.0-17.5); Lymphocytes # (A) 1.3 k/uL (1.0-4.8); Lymphocytes % (A) 15 %; MCH 28.8 pg (25.0-35.0); MCHC 32.8 g/dL (31.0-37.0); Mean Platelet Volume 6.9; Monocytes # (A) 0.8 k/uL (0-1.0); Monocytes % (A) 9 %; Neutrophils # (A) 5.9 k/uL (1.3-7.7); Neutrophils % (A) 69 %; Platelet Count 231 k/uL (150-450); RBC 5.34 m/uL (4.30-5.90); RDW 14.3 % (11.5-15.5); WBC 8.6 k/uL (3.8-10.6)
--- NOTE | 2018-08-03 16:36 | XR ---
EXAMINATION TYPE: XR KUB DATE OF EXAM: 08/03/2018 COMPARISON: NONE HISTORY: Nausea and vomiting TECHNIQUE: 2 views upright FINDINGS: There are multiple small bowel air-fluid levels. I do not see any significant intestinal di lation. There is no evidence of free air. There is previous lumbar spine surgery noted. There is no e vidence of a mass. There are clips from cholecystectomy. There is some linear patchy atelectasis at t he lung bases. IMPRESSION: There is probably some intestinal ileus. No free air.
--- NOTE | 2018-08-03 16:37 | XR ---
EXAMINATION TYPE: XR chest 2V DATE OF EXAM: 08/03/2018 COMPARISON: 09/14/2014 HISTORY: TECHNIQUE: Frontal and lateral views of the chest are obtained. FINDINGS: There is no heart failure nor confluent pneumonic infiltrate. Costophrenic angles are antony r. There are no hilar masses. Bony thorax is intact. There is some mild linear density at the left daryn ng base. IMPRESSION: New Minimal atelectasis left lung base compared to old exam.
[2018-08-03 16:39] LABS: Albumin 4.1 g/dL (3.5-5.0); Calcium 9.7 mg/dL (8.4-10.2); Potassium 5.4 mmol/L (3.5-5.1); Total Bilirubin 0.8 mg/dL (0.2-1.3)
[2018-08-03] MEDS ORDERED: HYDROmorphone 1 MG/ML 1 ML SYRINGE IVP STA (17:06)
[2018-08-03 18:09] VITALS: BP 137/91; PULSE 104; TEMP 98.1
[2018-08-03] MEDS ORDERED: DIPHENOX-ATROP 2.5-0.025 MG 1 EACH TAB PO STA (18:13)
[2018-08-03] MEDS ORDERED: DIPHENOX-ATROP STARTER PACK 8 TAB BTL PO STA (18:47)
== END 2018-08-03 19:03 | disposition home or self-care (01) ==
LOC: EC 15:25
DX: K52.9 Noninfective gastroenteritis and colitis, unspecified (principal); B34.9 Viral infection, unspecified; E86.0 Dehydration; N28.9 Disorder of kidney and ureter, unspecified; I10 Essential (primary) hypertension; Z79.899 Other long term (current) drug therapy; Z88.8 Allergy status to other drugs, medicaments and biological substances; Z90.89 Acquired absence of other organs; Z90.49 Acquired absence of other specified parts of digestive tract; Z95.5 Presence of coronary angioplasty implant and graft; Z98.2 Presence of cerebrospinal fluid drainage device
CPT/HCPCS: 36415; 80053; 82150; 83690; 85025; 87040; 87502; 71046; 74018; 99284; 96374; 96375; 96361 ×3; J2405; J1170

== ENCOUNTER 2018-08-04 19:21 | Emergency (ER) | payer MEDICARE, OTHER ==
[2018-08-04] MEDS ORDERED: SODIUM CHLORIDE 0.9% 2,000 ML IV STA (19:58)
[2018-08-04] MEDS ORDERED: DICYCLOMINE 20 MG TAB PO STA (19:59)
[2018-08-04] MEDS ORDERED: ONDANSETRON 4 MG/2 ML VIAL IVP STA (20:24)
--- NOTE | 2018-08-04 20:27 | ED ---
General Adult HPI - General Chief complaint: Recheck/Abnormal Lab/Rx Stated complaint: Abd Pain NVD Time Seen by Provider: 08/04/18 19:36 Source: patient, RN notes reviewed Mode of arrival: ambulatory Limitations: no limitations - History of Present Illness Initial comments: 57-year-old male presents to the emergency department for a chief complaint of pain in the anal area. Patient states he has diarrhea for the past 3 days. He states he is having diarrhea about every 20 minutes. He states that every time he has diarrhea his bottom hurts very bad on the surface. He states it feels raw and burning. Patient denies any abdominal pain. He is drinking somewhat today at home and diarrhea does seem to be minimally. She states he was vomiting yesterday but has not been vomiting since then. Patient has no other complaints at this time including shortness of breath, chest pain, abdominal pain, nausea or vomiting, headache, or visual changes. - Related Data Home Medications Medication Instructions Recorded Confirmed oxyCODONE HCL 15 mg PO QID 10/05/15 05/20/18 Bisoprol/Hydrochlorothiazide 1 tab PO DAILY 09/05/17 05/20/18 [Bisoprolol-Hctz 5-6.25 mg Tab] Diazepam [Valium] 2 mg PO BID 04/30/18 05/20/18 Mirabegron [Myrbetriq] 10 mg PO DAILY 04/30/18 05/20/18 Previous Rx's Medication Instructions Recorded Ondansetron Odt [Zofran Odt] 4 mg PO Q8HR PRN #10 tab 08/03/18 Allergies Allergy/AdvReac Type Severity Reaction Status Date / Time lorazepam AdvReac AGITATION Verified 08/04/18 19:32 Review of Systems ROS Statement: Those systems with pertinent positive or pertinent negative responses have been documented in the HPI. ROS Other: All systems not noted in ROS Statement are negative. Past Medical History Past Medical History: Chest Pain / Angina, GERD/Reflux, Hyperlipidemia, Hypertension, Osteoarthritis (OA), Sleep Apnea/CPAP/BIPAP Additional Past Medical History / Comment(s): Chronic back pain and problems. Does not use CPAP. no current problems w/chest pain, USES CANE PRN. History of Any Multi-Drug Resistant Organisms: MRSA Date of last positivie culture/infection: 2011 MDRO Source:: ABD. Past Surgical History: Appendectomy, Back Surgery, Cholecystectomy, Heart Catheterization, Hernia Repair, Orthopedic Surgery Additional Past Surgical History / Comment(s): Posterior lumbar decompression and fusion transforaminal lumbar interbody fusion L4-5. NECK AND LT SHOULDER SURG. Past Anesthesia/Blood Transfusion Reactions: No Reported Reaction Additional Past Anesthesia/Blood Transfusion Reaction / Comment(s): NO FAMILY HX KNOWN - pt adopted. Past Psychological History: Depression Smoking Status: Never smoker Past Alcohol Use History: Occasional Past Drug Use History: None Reported - Past Family History Father Family Medical History: Unable to Obtain Additional Family Medical History / Comment(s): Pt was adopted. Mother Family Medical History: Unable to Obtain Additional Family Medical History / Comment(s): Pt was adopted. General Exam Limitations: no limitations General appearance: alert, in no apparent distress Head exam: Present: atraumatic, normocephalic, normal inspection Eye exam: Present: normal appearance, PERRL, EOMI. Absent: scleral icterus, conjunctival injection, periorbital swelling ENT exam: Present: normal exam, mucous membranes moist Neck exam: Present: normal inspection, full ROM. Absent: tenderness, meningismus, lymphadenopathy Respiratory exam: Present: normal lung sounds bilaterally. Absent: respiratory distress, wheezes, rales, rhonchi, stridor Cardiovascular Exam: Present: regular rate, normal rhythm, normal heart sounds. Absent: systolic murmur, diastolic murmur, rubs, gallop, clicks GI/Abdominal exam: Present: soft, normal bowel sounds. Absent: distended, tenderness, guarding, rebound, rigid Rectal exam: Absent: normal inspection (skin breakdown noted around anus) Neurological exam: Present: alert, oriented X3, CN II-XII intact Psychiatric exam: Present: normal affect, normal mood Skin exam: Present: rash (erythema noted to face, neg nikosly. erythema is confined to facial area, no erythema on trunk or extremities) Course Vital Signs 08/04/18 08/04/18 08/04/18 19:28 21:42 22:51 Temperature 98.6 F 98.8 F Pulse Rate 106 H 98 99 Respiratory 16 18 18 Rate Blood Pressure 124/72 101/51 106/65 O2 Sat by Pulse 94 L 94 L 95 Oximetry Medical Decision Making - Medical Decision Making 57-year-old male presents to the emergency department for a chief complaint of pain in buttocks. Patient states he has had diarrhea for the past 3 days. He states he is taking somewhat at home today but not as much as normal. On exam patient does have skin breakdown around the anal area from irritation from diarrhea. Patient was given a barrier cream for this which did help significantly with his pain. However clinically he does appear dry. Patient received 3 L bolus yesterday in the ER. He was given a 2 L bolus today. CBC and CMP are unremarkable. Creatinine has improved to 0.84 from yesterday's results of 1.27. Minimal hyperkalemia noted of 5.3 which was improved from 5.4 yesterday. Urine is negative. C. diff negative. Stool culture sent. No abdominal tenderness whatsoever on exam, no imaging warranted at this time. Likely viral etioloy. He states diarrhea has improved somehwat from yesterday and he is no longer vomiting. Discussed this case with Dr. Mueller and patient will be discharged home. Patient agrees with this and is stating he was ready to go home. Discussed drinking plenty of fluids. Patient has Lomotil at home already. He states he will follow up with his primary care doctor tomorrow and return here if he has any worsening symptoms. - Lab Data Result diagrams: 08/04/18 20:13 08/04/18 20:13 Lab Results 08/04/18 08/04/18 08/04/18 Range/Units 20:13 20:13 20:40 WBC 9.0 (3.8-10.6) k/uL RBC 4.55 (4.30-5.90) m/uL Hgb 13.1 (13.0-17.5) gm/dL Hct 39.7 (39.0-53.0) % MCV 87.3 (80.0-100.0) fL MCH 28.7 (25.0-35.0) pg MCHC 32.9 (31.0-37.0) g/dL RDW 14.2 (11.5-15.5) % Plt Count 237 (150-450) k/uL Neutrophils % 71 % Lymphocytes % 14 % Monocytes % 7 % Eosinophils % 6 % Basophils % 0 % Neutrophils # 6.4 (1.3-7.7) k/uL Lymphocytes # 1.2 (1.0-4.8) k/uL Monocytes # 0.6 (0-1.0) k/uL Eosinophils # 0.5 (0-0.7) k/uL Basophils # 0.0 (0-0.2) k/uL Sodium 136 L (137-145) mmol/L Potassium 5.3 H (3.5-5.1) mmol/L Chloride 107 (98-107) mmol/L Carbon Dioxide 24 (22-30) mmol/L Anion Gap 5 mmol/L BUN 21 H (9-20) mg/dL Creatinine 0.84 (0.66-1.25) mg/dL Est GFR (CKD-EPI)AfAm >90 (>60 ml/min/1.73 sqM) Est GFR (CKD-EPI)NonAf >90 (>60 ml/min/1.73 sqM) Glucose 94 (74-99) mg/dL Calcium 8.9 (8.4-10.2) mg/dL Total Bilirubin 0.7 (0.2-1.3) mg/dL AST 28 (17-59) U/L ALT 35 (21-72) U/L Alkaline Phosphatase 70 (38-126) U/L Total Protein 6.3 (6.3-8.2) g/dL Albumin 3.6 (3.5-5.0) g/dL Amylase <30 L (30-110) U/L Lipase 29 (23-300) U/L Urine Color Yellow Urine Appearance Clear (Clear) Urine pH 5.5 (5.0-8.0) Ur Specific [place] 1.021 (1.001-1.035) Urine Protein Trace H (Negative) Urine Glucose (UA) Negative (Negative) Urine Ketones Negative (Negative) Urine Blood Negative (Negative) Urine Nitrite Negative (Negative) Urine Bilirubin Negative (Negative) Urine Urobilinogen <2.0 (<2.0) mg/dL Ur Leukocyte Esterase Negative (Negative) C. difficile (EIA) Intrp (Negative) 08/04/18 Range/Units 20:55 WBC (3.8-10.6) k/uL RBC (4.30-5.90) m/uL Hgb (13.0-17.5) gm/dL Hct (39.0-53.0) % MCV (80.0-100.0) fL MCH (25.0-35.0) pg MCHC (31.0-37.0) g/dL RDW (11.5-15.5) % Plt Count (150-450) k/uL Neutrophils % % Lymphocytes % % Monocytes % % Eosinophils % % Basophils % % Neutrophils # (1.3-7.7) k/uL Lymphocytes # (1.0-4.8) k/uL Monocytes # (0-1.0) k/uL Eosinophils # (0-0.7) k/uL Basophils # (0-0.2) k/uL Sodium (137-145) mmol/L Potassium (3.5-5.1) mmol/L Chloride (98-107) mmol/L Carbon Dioxide (22-30) mmol/L Anion Gap mmol/L BUN (9-20) mg/dL Creatinine (0.66-1.25) mg/dL Est GFR (CKD-EPI)AfAm (>60 ml/min/1.73 sqM) Est GFR (CKD-EPI)NonAf (>60 ml/min/1.73 sqM) Glucose (74-99) mg/dL Calcium (8.4-10.2) mg/dL Total Bilirubin (0.2-1.3) mg/dL AST (17-59) U/L ALT (21-72) U/L Alkaline Phosphatase (38-126) U/L Total Protein (6.3-8.2) g/dL Albumin (3.5-5.0) g/dL Amylase (30-110) U/L Lipase (23-300) U/L Urine Color Urine Appearance (Clear) Urine pH (5.0-8.0) Ur Specific [place] (1.001-1.035) Urine Protein (Negative) Urine Glucose (UA) (Negative) Urine Ketones (Negative) Urine Blood (Negative) Urine Nitrite (Negative) Urine Bilirubin (Negative) Urine Urobilinogen (<2.0) mg/dL Ur Leukocyte Esterase (Negative) C. difficile (EIA) Intrp Negative (Negative) Disposition Clinical Impression: Diarrhea Disposition: HOME SELF-CARE Condition: Good Instructions (If sedation given, give patient instructions): Acute Diarrhea (ED ) Additional Instructions: Please continue to take Lomotil as needed for diarrhea. Please follow-up with primary care tomorrow. Continue to drink plenty of fluids. Return here if you have any worsening symptoms. Is patient prescribed a controlled substance at d/c from ED?: No Referrals: Son Armas MD [Primary Care Provider] - 1-2 days Time of Disposition: 22:42
[2018-08-04 20:28] LABS: Basophils % (A) 0 %; Eosinophils # (A) 0.5 k/uL (0-0.7); Eosinophils % (A) 6 %; HCT 39.7 % (39.0-53.0); HGB 13.1 gm/dL (13.0-17.5); Lymphocytes # (A) 1.2 k/uL (1.0-4.8); Lymphocytes % (A) 14 %; MCH 28.7 pg (25.0-35.0); MCHC 32.9 g/dL (31.0-37.0); MCV 87.3 fL (80.0-100.0); Mean Platelet Volume 6.1; Monocytes # (A) 0.6 k/uL (0-1.0); Monocytes % (A) 7 %; Neutrophils # (A) 6.4 k/uL (1.3-7.7); Neutrophils % (A) 71 %; Platelet Count 237 k/uL (150-450); RBC 4.55 m/uL (4.30-5.90); RDW 14.2 % (11.5-15.5)
[2018-08-04 20:41] LABS: ALT 35 U/L (21-72); AST 28 U/L (17-59); Albumin 3.6 g/dL (3.5-5.0); Alkaline Phosphatase 70 U/L (38-126); Amylase <30 U/L (30-110); Anion Gap 5 mmol/L; Blood Urea Nitrogen 21 mg/dL (9-20); Calcium 8.9 mg/dL (8.4-10.2); Carbon Dioxide 24 mmol/L (22-30); Chloride 107 mmol/L (98-107); Glucose 94 mg/dL (74-99); Lipase 29 U/L (23-300); Potassium 5.3 mmol/L (3.5-5.1); Sodium 136 mmol/L (137-145); Total Bilirubin 0.7 mg/dL (0.2-1.3); Total Protein 6.3 g/dL (6.3-8.2)
[2018-08-04 20:49] LABS: Appearance,Urine Clear (Clear); Bilirubin,Urine Negative (Negative); Blood,Urine Negative (Negative); Color,Urine Yellow; Glucose,Urine (UA) Negative (Negative); Ketones,Urine Negative (Negative); Leukocyte Esterase,Urine Negative (Negative); Nitrite,Urine Negative (Negative); PH, Urine 5.5 (5.0-8.0); Protein,Urine Trace (Negative); Specific Gravity,Urine 1.021 (1.001-1.035); Urobilinogen,Urine <2.0 mg/dL (<2.0)
[2018-08-04 21:44] VITALS: RESP 18
[2018-08-04 22:52] VITALS: BP 106/65; PULSE 99; TEMP 98.8
== END 2018-08-04 22:51 | disposition home or self-care (01) ==
LOC: EC 19:21
DX: R19.7 Diarrhea, unspecified (principal); E87.5 Hyperkalemia; K62.89 Other specified diseases of anus and rectum; R10.9 Unspecified abdominal pain; I10 Essential (primary) hypertension; M19.90 Unspecified osteoarthritis, unspecified site; G47.30 Sleep apnea, unspecified; Z99.89 Dependence on other enabling machines and devices; Z86.14 Personal history of Methicillin resistant Staphylococcus aureus infection; Z90.49 Acquired absence of other specified parts of digestive tract; Z95.818 Presence of other cardiac implants and grafts; Z79.891 Long term (current) use of opiate analgesic; Z79.899 Other long term (current) drug therapy; Z88.8 Allergy status to other drugs, medicaments and biological substances
CPT/HCPCS: 36415; 80053; 82150; 83690; 85025; 81003; 87324; 87045; 87046; 99284; 96374; 96361 ×2; J2405

== ENCOUNTER → 2018-09-12 | Outpatient (CLI) | payer MEDICARE, OTHER ==
[2018-09-12 15:07] VITALS: BP 133/85; PULSE 83; RESP 16
--- NOTE | 2018-09-12 15:26 | P.PN ---
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, and he is complaining of severe neck pain with radiation to the upper extremity associated with numbness and tingling sensation, patient had cervical fusion surgery done several years ago We have done an interventional pain procedure Caudal Epidural steroid injection with lysis of epidural adhesions , and the last injection was done May 2018 The patient currently on oxycodone 15 mg every 6 hours , Motrin 800 mg every 8 hours Patient denies any side effect of the medication , patient denies any excessive drowsiness or sleepiness, patient denies any suicidal ideation, Patient reported that the current medication is helping to control the pain and improve the activity of daily livings, Patient denies any motor or sensory deficit, denies any change in the bowel movement or urination, patient denies any fever or night sweats. Physical Examinations : 1-Constitutiona : Cooperative , not in acute distress . 2-HEENT : nech ; supple , no Lymphadenopathy , normal thyroid size . eyes : no ptosis , no ict erus, no photophobia . ENT : normal of hearing , normal oropharynx , no Thrush . 3- Respiratory : Chest clear to auscultations Bilaterally , no wheezing , no Rhonchi . 4- Cardiovascular : regular rate and rhythem , S1 , S2 , no S3 , no S4. 5- Gastrointestinal : abdomen soft no tenderness , bowel sounds , no organomegally . 6- Genitourinary : Defferred . 7- neurologic : Cranial nerve II to XII intact , no focal neurological deffecit . 8-psychatric : alert , oriented X 3 , appropriate affect , intact judgment and insight . 9-Lymphatic : no Lymphadenopathy . 10- musculoskeltal : Cervical Spine motor stregnth in the deltoid and biceps, normal right side , normal Left side motor stregnth biceps and the wrist extensors normal right side ,normal left side . motor stregnth in the triceps muscle . normal Right side , normal Left side deep tendon reflexes normal at the biceps , normal at Brachioradialis , normal at triceps. positive cervical facet loading test . Trigger point identified in the cervical paravertebral muscles left side more than the right side Lumber spine moter stegnth lower extremities ,thigh and legs 5/5 Right side , 5/5 Left side deep tendon reflexes : normal Knee Jerk , normal ankle Jerk positive lumber facet Loading Test Range of motion of the lumbar spine Flexion 30 degrees, extension 10 degrees strait leg raising test , positive at 30 degree left side, negative on the right side Fabere test positive RT and positive LT . Assessment and plan= chronic low back pain secondary to lumbar failed back surgery syndrome Chronic neck pain secondary to failed back surgery syndrome cervical area , myofascial pain syndrome cervical area Patient will be good candidate to have caudal epidural steroid injections with lysis of epidural adhesions , and the same time ,patient could benefit from trigger point injection in the cervical area procedure risk and benefits and alternatives discussed on. Patient getting prescription refills from his primary care Because patient currently reports increasing intensity of the pain and numbne ss , and occasional weakness in the upper extremity will order MRI of the cervical spine PQRS Measure Charge Sheet Measure #130: Documentation of Current Meds in Medical Chart: Patient's medications documented in chart Measure #226: Tobacco Use: Screen & Cessation Intervention: Pt screened for tobacco use AND intervention given Measure #111: Pneumonia Vaccination: Pneumococcal vaccine NOT administered or previously given Measure #47: Advance Care Plan: Advance care planning discussed & documented, pt chose/unable to give Measure #412: Opioid Treatment Agreement: No documentation of signed opioid treatment agreement Measure #408: Opioid Therapy Follow-up Evaluation: Patient had NO f/u eval minimum every 3 months during opioid therapy Measure #317: Preventitive Care & Scrn High Bld Press & F/U: Normal blood pressure, f/u not required Measure #128: Body Mass Index (BMI) Screening & Follow-up: BMI documented ABOVE normal parameters - f/u documented Measure #131: Pain Assessment & Follow-up: Pain positive & plan documented, Follow-up scheduled Measure #431: Unhealthy Alcohol Use Preventative Care & Scrn: Patient not iden tified as an unhealthy alcohol user PQRS Narrative: - Controlled Substance Measures Is patient prescribed a controlled substance at discharge?: No When asked, does pt state using other controlled substances?: No If prescribed controlled substance>3 days was MAPS reviewed?: No If Rx opioid, was Start Talking consent form obtained?: No If opioid is for acute pain is fill amount 7 days or less?: No Was information provided regarding opioid addiction?: No Objective - Vital Signs Vital signs: Vital Signs Temp Pulse 83 09/12/18 14:58 Resp 16 09/12/18 14:58 BP 133/85 09/12/18 14:58 Pulse Ox Intake & Output 09/11/18 09/12/18 09/12/18 18:59 06:59 18:59 Weight 111.13 kg
== END ==
LOC: PNWHC3 14:01
PROVIDERS: ATTEND Specialist
DX: G89.29 Other chronic pain (principal); M96.1 Postlaminectomy syndrome, not elsewhere classified; M79.18 Myalgia, other site; Z79.891 Long term (current) use of opiate analgesic; Z79.1 Long term (current) use of non-steroidal anti-inflammatories (NSAID)
CPT/HCPCS: 99211

== ENCOUNTER 2018-09-19 07:59 | Day surgery (SDC) | payer MEDICARE, OTHER ==
[2018-09-18 12:18] VITALS: BMI 37.2
[~2018-09-19 07:59] MED LIST changes: +LACTATED RINGERS 1,000 ML IV SCH; -SODIUM CHLORIDE 0.9% 500 ML 500 ML IV SCH
[2018-09-19 08:24] VITALS: TEMP 96.8
--- NOTE | 2018-09-19 09:21 | P.PCN ---
Date of Procedure: 09/19/18 Procedure(s) Performed: PREOP DIAGNOSIS: 1- Lumbar postlaminectomy syndrome. 2-myofascial pain syndrome cervical area . POSTOP DIAGNOSIS:1- Lumbar postlaminectomy syndrome. 2-myofascial pain syndrome cervical area . PROCEDURE: 1-Caudal epidural steroid injection with epidurolysis and epidurogram under fluoroscopic guidance. 2-caudal epidurogram. 3-trigger point injection cervical area and one on the right side trapezius muscle and 2 on the left side (this muscle and rhomboid muscle 0 ANESTHESIA: Local with 1% lidocaine 5 ml only ( No IV sedations ) EBL: Minimal. PROCEDURE INDICATION: The patient with post-laminectomy syndrome with low back pain and radiculopathy radiating down in both legs, here for a caudal epidural steroid injection with epidurolysis. And also patient had multiple trigger point identified in the preop holding area for this reason he will be good candidate to have trigger point injection PROCEDURE DESCRIPTION: The patient was seen and identified in the preoperative area. Risks, benefits, complications, and alternatives were discussed with the patient. The patient agreed to proceed with the procedure and signed the consent , patient requested no sedation, and vital signs were stable. Patient was taken to the OR and time out was completed. The patient was placed in the prone position on procedure table and a pillow was placed under the abdomen to reduce lumbar lordosis. The lumbosacral area was prepped and draped in the usual sterile fashion. Vital signs were closely monitored during the procedure. lateral view and the anterior-posterior plates of the sacrum were identified with infiltration of the area overlying the sacral hiatus with 1% lidocaine .A 17 gauge RK epidural needle was used to advance through the sacral hiatus into the caudal epidural space. Omnipaque 180 dye. 2cc was injected and the position of the needle was verified to be in the midline. A Racz catheter was introduced into the epidural space and was advanced towards the L5-S1 interspace under direct fluoroscopic guidance. Multiple passes were made with the catheter for lysis of epidural adhesions. Depo-Medrol 80 mg with 3ml of preservative free Lidocaine 1% and 5 ml of preservative free normal saline was injected slowly. Additional spread was seen to L4 under fluoroscopy. The needle and the catheter were withdrawn intact. EPIDUROGRAM: Omnipaque 180 mg dye 2 ml was injected with spread of the dye into the caudal epidural space and with spread cutoff at L5 prior to epidurolysis. Post epidurolysis dye 2 ml was injected and spread was seen to L3-4.There was further spread of the solution together with the dye above the L3 Then after that the trigger point injection done sterile technique cervical area prepped with Betadine 3, one trigger point in the left side trapezius muscle and one on the left-sided paralumbar muscle, and one on the right side trapezius muscle, each one of them injected with bupivacaine 0.5% 2 mL injected at each trigger point using 25-gauge needle injection done after negative aspiration and there was no paresthesia during the injection, patient tolerated the procedure well without any complications COMPLICATIONS: None. DISPOSITION / PLANS: The patient was placed in a supine position and transferred to the recovery area in a stable condition for observation and was discharged from the recovery room after meeting discharge criteria. Home discharge instructions given to the patient by the staff. The patient was reexamined prior to discharge. The patient will schedule a follow up in the clinic in 2-4 weeks.
[2018-09-19 09:23] VITALS: BP 120/69; PULSE 66; RESP 15
--- NOTE | 2018-09-19 09:48 | FL ---
EXAMINATION TYPE: FL guided pain mgmt statistic DATE OF EXAM: 09/19/2018 CLINICAL HISTORY: Low back and sacral pain. TECHNIQUE: Fluoroscopy. COMPARISON: None. FINDINGS: Fluoroscopic guidance was provided during pain relief procedure performed by Dr. Chan . A total of 4 seconds of fluoroscopic time was utilized during the procedure and single spot image is acquired. Single image acquired shows needle localization at posterior sacrum from inferior appro ach. IMPRESSION: As Above.
== END 2018-09-19 09:33 | disposition home or self-care (01) ==
LOC: ORPAIN 07:59
PROVIDERS: ATTEND Specialist
DX: M96.1 Postlaminectomy syndrome, not elsewhere classified (principal); M79.18 Myalgia, other site; Z88.8 Allergy status to other drugs, medicaments and biological substances
CPT/HCPCS: 20553; 62264; J1030; Q9966; 62323

== ENCOUNTER → 2018-09-24 | Outpatient (CLI) | payer MEDICARE, OTHER | END | disposition home or self-care (01) | LOC: RADMRIMAIN 15:21 | PROVIDERS: ATTEND Specialist | DX: Z53.9 Procedure and treatment not carried out, unspecified reason (principal) ==

== ENCOUNTER → 2018-10-10 | Day surgery (SDC) | payer MEDICARE, OTHER ==
[2018-10-08 15:27] VITALS: BMI 36.7
[2018-10-10 07:35] VITALS: RESP 16; TEMP 97.6
--- NOTE | 2018-10-10 08:52 | P.PCN ---
Date of Procedure: 10/10/18 Procedure(s) Performed: PREOP DIAGNOSIS: 1- Lumbar postlaminectomy syndrome. 2-myofascial pain syndrome cervical area . POSTOP DIAGNOSIS:1- Lumbar postlaminectomy syndrome. 2-myofascial pain syndrome cervical area . PROCEDURE: 1-Caudal epidural steroid injection with epidurolysis and epidurogram under fluoroscopic guidance. 2-caudal epidurogram. 3-trigger point injection cervical area and one on the left trapezius muscle and left rhomboid muscle ( 2 trigger points injected ) ANESTHESIA: Local with 1% lidocaine 5 ml only ( No IV sedations ) EBL: Minimal. PROCEDURE INDICATION: The patient with post-laminectomy syndrome with low back pain and radiculopathy radiating down in both legs, here for a caudal epidural steroid injection with epidurolysis. And also patient had multiple trigger point identified in the preop holding area for this reason he will be good candidate to have trigger point injection PROCEDURE DESCRIPTION: The patient was seen and identified in the preoperative area. Risks, benefits, complications, and alternatives were discussed with the patient. The patient agreed to proceed with the procedure and signed the consent , patient requested no sedation, and vital signs were stable. Patient was taken to the OR and time out was completed. The patient was placed in the prone position on procedure table and a pillow was placed under the abdomen to reduce lumbar lordosis. The lumbosacral area was prepped and draped in the usual sterile fashion. Vital signs were closely monitored during the procedure. lateral view and the anterior-posterior plates of the sacrum were identified with infiltration of the area overlying the sacral hiatus with 1% lidocaine .A 17 gauge RK epidural needle was used to advance through the sacral hiatus into the caudal epidural space. Omnipaque 180 dye. 2cc was injected and the position of the needle was verified to be in the midline. A Racz catheter was introduced into the epidural space and was advanced towards the L5-S1 interspace under direct fluoroscopic guidance. Multiple passes were made with the catheter for lysis of epidural adhesions. Depo-Medrol 80 mg with 3ml of preservative free Lidocaine 1% and 5 ml of preservative free normal saline was injected slowly. Additional spread was seen to L4 under fluoroscopy. The needle and the catheter were withdrawn intact. EPIDUROGRAM: Omnipaque 180 mg dye 2 ml was injected with spread of the dye into the caudal epidural space and with spread cutoff at L5 prior to epidurolysis. Post epidurolysis dye 2 ml was injected and spread was seen to L3-4.There was further spread of the solution together with the dye above the L3 Then after that the trigger point injection done sterile technique cervical area prepped with Betadine 3, one trigger point in the left side trapezius muscle and the left-sided rhomboid muscle,, each one of them injected with bupivacaine 0.5% 2 mL injected at each trigger point using 25-gauge needle injection done after negative aspiration and there was no paresthesia during the injection, patient tolerated the procedure well without any complications COMPLICATIONS: None. DISPOSITION / PLANS: The patient was placed in a supine position and transferred to the recovery area in a stable condition for observation and was discharged fr om the recovery room after meeting discharge criteria. Home discharge instructions given to the patient by the staff. The patient was reexamined prior to discharge. The patient will schedule a follow up in the clinic in 2-4 weeks.
[2018-10-10 09:00] VITALS: BP 129/69; PULSE 73
--- NOTE | 2018-10-10 09:26 | FL ---
EXAMINATION TYPE: FL guided pain mgmt statistic DATE OF EXAM: 10/10/2018 CLINICAL HISTORY: Sacral pain. TECHNIQUE: Fluoroscopy. COMPARISON: None. FINDINGS: Fluoroscopic guidance was provided during pain relief procedure performed by Dr. Chan . A total of 17 seconds of fluoroscopic time was utilized during the procedure and 5 spot intraopera tive images are acquired. Images acquired shows needle localization at level of the sacrum from post erior inferior approach. There is catheter advancement to the lumbar spine with partial visualization of surgical change. IMPRESSION: As Above.
== END ==
LOC: ORPAIN 07:25
PROVIDERS: ATTEND Specialist
DX: M96.1 Postlaminectomy syndrome, not elsewhere classified (principal); M79.18 Myalgia, other site; M47.26 Other spondylosis with radiculopathy, lumbar region; Z88.8 Allergy status to other drugs, medicaments and biological substances
CPT/HCPCS: 20552; 62264; J1030; Q9966; 62323

== ENCOUNTER 2018-10-25 22:05 | Emergency (ER) | payer MEDICARE, OTHER ==
[2018-10-25] MEDS ORDERED: MORPHINE SULFATE 4 MG/ML SYRINGE IM STA (22:45)
--- NOTE | 2018-10-25 23:13 | CT ---
EXAM: CT Head Without Intravenous Contrast CLINICAL HISTORY: fall TECHNIQUE: Axial computed tomography images of the head/brain without intravenous contrast. CTDI is 49.27 mGy and DLP is 1188.4 mGy-cm. This CT exam was performed using one or more of the following dose reduction techniques: automated exposure control, adjustment of the mA and/or kV according to patient size, and/or use of iterative reconstruction technique. Coronal and sagittal reconstructions are performed COMPARISON: 10/05/2015 FINDINGS: Brain: Unremarkable. No hemorrhage. No significant white matter disease. No edema. Ventricles: Unremarkable. No ventriculomegaly. Bones/joints: Unremarkable. No acute fracture. Soft tissues: Mild subcutaneous soft tissue prominence with questionable linear calcifications over right parietal bone, unchanged from prior study. Sinuses: Unremarkable as visualized. No acute sinusitis. Mastoid air cells: Unremarkable as visualized. No mastoid effusion. IMPRESSION: No intracranial hemorrhage or skull fracture.
--- NOTE | 2018-10-25 23:24 | XR ---
EXAM: XR Right Ribs CLINICAL HISTORY: right lower rib pain after fall out of bathtub, no prior TECHNIQUE: Frontal and oblique views of the right ribs. 4 images COMPARISON: No relevant prior studies available. FINDINGS: Lungs: Unremarkable as visualized. No consolidation. Pleural space: No pneumothorax. Bones/joints: Fusion hardware of lower lumbar and cervical spine. Upper abdomen: Cholecystectomy clips. IMPRESSION: No acute right rib fracture
--- NOTE | 2018-10-25 23:25 | XR ---
EXAM: XR Left Knee, 3 views CLINICAL HISTORY: left knee pain after fall out of bathtub TECHNIQUE: Three views of the left knee. COMPARISON: No relevant prior studies available. FINDINGS: Bones/joints: Unremarkable. No fracture. No dislocation. Soft tissues: Unremarkable. IMPRESSION: No fracture
--- NOTE | 2018-10-25 23:37 | ED ---
Fall HPI - General Chief Complaint: Fall Stated Complaint: fall from Bathtub, ribs, knee, head Time Seen by Provider: 10/25/18 22:15 Source: patient Mode of arrival: ambulatory - History of Present Illness MD Complaint: fall -: hour(s) Fall From: standing When Fall Occurred: 1-3 hours [employer] Fall Witnessed: no Place Fall Occurred: home Loss of Consciousness: none Prolonged Down Time?: no Symptoms Prior to Fall: none Location: head, chest Location - Extremities: Left: Knee Severity: moderate Quality: dull, aching Context: tripped/slipped - Related Data Home Medications Medication Instructions Recorded Confirmed oxyCODONE HCL 15 mg PO QID 10/05/15 10/25/18 Bisoprol/Hydrochlorothiazide 1 tab PO DAILY 09/05/17 10/25/18 [Bisoprolol-Hctz 5-6.25 mg Tab] Diazepam [Valium] 2 mg PO BID PRN 04/30/18 10/25/18 Mirabegron [Myrbetriq] 10 mg PO DAILY 04/30/18 10/25/18 Allergies Allergy/AdvReac Type Severity Reaction Status Date / Time lorazepam AdvReac AGITATION Verified 10/25/18 22:44 Review of Systems ROS Statement: Those systems with pertinent positive or pertinent negative responses have been documented in the HPI. ROS Other: All systems not noted in ROS Statement are negative. Constitutional: Denies: weakness Eyes: Denies: eye pain, vision change ENT: Denies: epistaxis Respiratory: Denies: cough, dyspnea Cardiovascular: Reports: as per HPI, chest pain. Denies: palpitations, edema, syncope Gastrointestinal: Denies: abdominal pain, vomiting, diarrhea Musculoskeletal: Reports: arthralgia (Left knee). Denies: back pain Skin: Denies: rash Neurological: Denies: headache, weakness, numbness, paresthesias, confusion Hematological/Lymphatic: Denies: easy bleeding Past Medical History Past Medical History: Chest Pain / Angina, GERD/Reflux, Hyperlipidemia, Hypertension, Osteoarthritis (OA), Sleep Apnea/CPAP/BIPAP Additional Past Medical History / Comment(s): Chronic back pain and problems. Does not use CPAP. no current problems w/chest pain, USES CANE PRN. History of Any Multi-Drug Resistant Organisms: MRSA Date of last positivie culture/infection: 2011 MDRO Source:: ABD. Past Surgical History: Appendectomy, Back Surgery, Cholecystectomy, Heart Catheterization, Hernia Repair, Orthopedic Surgery Additional Past Surgical History / Comment(s): Posterior lumbar decompression and fusion transforaminal lumbar interbody fusion L4-5. NECK AND LT SHOULDER SURG. Past Anesthesia/Blood Transfusion Reactions: No Reported Reaction Additional Past Anesthesia/Blood Transfusion Reaction / Comment(s): NO FAMILY HX KNOWN - pt adopted. Past Psychological History: Depression Smoking Status: Never smoker Past Alcohol Use History: Occasional Past Drug Use History: None Reported - Past Family History Father Family Medical History: Unable to Obtain Additional Family Medical History / Comment(s): Pt was adopted. Mother Family Medical History: Unable to Obtain Additional Family Medical History / Comment(s): Pt was adopted. General Exam Limitations: no limitations General appearance: alert, in no apparent distress Head exam: Present: normocephalic, other (Has approximately 1 cm abrasion to the scalp. Small amount of soft tissue swelling. No bony tenderness or deformity) Eye exam: Present: normal appearance, PERRL, EOMI. Absent: scleral icterus, conjunctival injection ENT exam: Present: normal oropharynx Neck exam: Present: normal inspection, full ROM. Absent: tenderness Respiratory exam: Present: normal lung sounds bilaterally, chest wall tenderness (Tenderness to the ribs along the costal margin on the right side, anterior chest). Absent: respiratory distress, wheezes, rales, rhonchi, stridor, accessory muscle use, decreased breath sounds, prolonged expiratory Cardiovascular Exam: Present: regular rate, normal rhythm, normal heart sounds. Absent: systolic murmur, diastolic murmur, rubs, gallop GI/Abdominal exam: Present: soft. Absent: distended, tenderness, guarding, rebound, rigid, organomegaly, mass, pulsatile mass Extremities exam: Present: normal inspection, full ROM, tenderness (Anterior aspect left knee. Small amount of soft tissue swelling and ecchymosis. No obvious bony deformity.), normal capillary refill. Absent: pedal edema, calf tenderness Back exam: Present: normal inspection. Absent: CVA tenderness (R), CVA tenderness (L), vertebral tenderness Neurological exam: Present: alert, oriented X3, CN II-XII intact. Absent: motor sensory deficit Skin exam: Present: warm, dry, intact, normal color. Absent: rash Course Vital Signs 10/25/18 22:08 Temperature 98.5 F Pulse Rate 82 Respiratory 18 Rate Blood Pressure 108/70 O2 Sat by Pulse 100 Oximetry Disposition Clinical Impression: Fall, Contusion, Head injury Disposition: HOME SELF-CARE Condition: Good Instructions (If sedation given, give patient instructions): Fall Prevention for Older Adults (ED), Head Injury (ED), Contusion in Adults (ED) Is patient prescribed a controlled substance at d/c from ED?: No Referrals: Son Armas MD [Primary Care Provider] - 1-2 days
[2018-10-25] MEDS ORDERED: DIPH,PERTUS(ACELL)TETVAC-LF 0.5 ML VIAL IM ONE (23:40)
[2018-10-26] VITALS: BP 112/78; PULSE 79; RESP 17; TEMP 97.8
== END 2018-10-26 | disposition home or self-care (01) ==
LOC: EC 22:05
DX: S80.02XA Contusion of left knee, initial encounter (principal); S00.01XA Abrasion of scalp, initial encounter; R07.9 Chest pain, unspecified; I10 Essential (primary) hypertension; G89.29 Other chronic pain; Z88.8 Allergy status to other drugs, medicaments and biological substances; Z79.891 Long term (current) use of opiate analgesic; Z79.899 Other long term (current) drug therapy; Z86.14 Personal history of Methicillin resistant Staphylococcus aureus infection; Z98.1 Arthrodesis status; Z23 Encounter for immunization; W17.89XA Other fall from one level to another, initial encounter; Y92.009 Unspecified place in unspecified non-institutional (private) residence as the place of occurrence of the external cause
CPT/HCPCS: 71100; 73562; 70450; 90715; 99284; 90471; 96372; J2270

== ENCOUNTER → 2019-02-24 | Outpatient (CLI) | payer MEDICARE, OTHER ==
[2019-02-24 14:28] VITALS: BP 116/82; PULSE 93; RESP 16
--- NOTE | 2019-02-24 14:45 | P.PAINPG ---
Subjective Progress Note Date: 02/24/19 This is a follow-up visit for this 58 years old male with a history of severe and chronic low back pain he is diagnosed with failed back surgery syndrome, and he had myofascial pain syndrome cervical paravertebral muscles, patient also had a cervical fusion surgery done several years ago, currently patient complaining of severe low back pain with radiation to the lower extremity and also he had severe neck pain with radiation to the left upper extremity associated with some numbness and tingling sensation, and he had neck pain, the pain is constant and increases with any activity he denies any motor or sensory deficits he denies any fever or night sweats, the continue to use oxycodone 15 mg every 6 hours and is getting prescription refills from his primary care Objective - Vital Signs Vital signs: Vital Signs Temp Pulse 93 02/24/19 14:25 Resp 16 02/24/19 14:25 BP 116/82 02/24/19 14:25 Pulse Ox 95 02/24/19 14:25 - Exam Physical Examinations : -Constitutiona : Cooperative , not in acute distress . -HEENT : nech : supple , no Lymphadenopathy , normal thyroid size . eyes : no ptosis , no icterus, no photophobia . . - neurologic : Cranial nerve II to XII intact , no focal neurological deffecit . -psychatric : alert , oriented X 3 , appropriate affect , intact judgment and insight . -Lymphatic : no Lymphadenopathy . - musculoskeltal : Cervical Spine motor stregnth in the deltoid and biceps, normal right side , normal Left side motor stregnth biceps and the wrist e xtensors normal right side ,normal left side . motor stregnth in the triceps muscle . normal Right side , normal Left side Multiple trigger points in the left side cervical paravertebral muscles Lumber spine moter stegnth lower extremities ,thigh and legs 5/5 Right side , 5/5 Left side deep tendon reflexes : normal Knee Jerk , normal ankle Jerk positive lumber facet Loading Test Range of motion of the lumbar spine Flexion 30 degrees, extension 10 degrees strait leg raising test , positive at 30 degree Fabere test positive RT and positive LT . Assessment and Plan Plan: Assessment and plan= failed back surgery syndrome and lumbar area. Cervical radiculopathy. Myofascial pain syndrome cervical. Patient could benefit from caudal epidural steroid injection with lysis of epidural adhesions under fluoroscopy guidance Patient could benefit from trigger point injections left-sided cervical paravertebral muscles Time with Patient: Less than 30 PQRS Measure Charge Sheet Measure #130: Documentation of Current Meds in Medical Chart: Patient's medications documented in chart Measure #226: Tobacco Use: Screen & Cessation Intervention: Pt not a tobacco user Measure #111: Pneumonia Vaccination: Pneumococcal vaccine NOT administered or previously given Measure #47: Advance Care Plan: Advance care planning discussed & documented, pt chose/unable to give Measure #412: Opioid Treatment Agreement: No documentation of signed opioid treatment agreement Measure #408: Opioid Therapy Follow-up Evaluation: Patient had NO f/u eval minimum every 3 months during opioid therapy Measure #317: Preventitive Care & Scrn High Bld Press & F/U: Normal blood pressure, f/u not required Measure #128: Body Mass Index (BMI) Screening & Follow-up: BMI documented ABOVE normal parameters - f/u documented Measure #131: Pain Assessment & Follow-up: Pain positive & plan documented, Follow-up scheduled Measure #431: Unhealthy Alcohol Use Preventative Care & Scrn: Patient not identified as an unhealthy alcohol user PQRS Narrative: Smoking Status Never smoker Narcotic Agreement Date Signed 10/21/12 Blood Pressure 116/82 Pain Intensity [Neck] 5 Pain Intensity [Lower Back] 7 Scale Used Numeric (1 - 10) Hx Alcohol Use (MH) Yes: social Home Medications: Ambulatory Orders oxyCODONE HCL 15 mg PO QID 10/05/15 Bisoprol/Hydrochlorothiazide [Bisoprolol-Hctz 5-6.25 mg Tab] 1 tab PO DAILY 09/05/17 Diazepam [Valium] 2 mg PO BID PRN 04/30/18 Mirabegron [Myrbetriq] 10 mg PO DAILY 04/30/18 Controlled Substance Measures - Controlled Substance Measures Is patient prescribed a controlled substance at discharge?: No
== END ==
LOC: PNWHC3 14:04
PROVIDERS: ATTEND Specialist
DX: M96.1 Postlaminectomy syndrome, not elsewhere classified (principal); M54.12 Radiculopathy, cervical region; M79.18 Myalgia, other site; Z79.891 Long term (current) use of opiate analgesic; Z79.899 Other long term (current) drug therapy
CPT/HCPCS: 99211

== ENCOUNTER 2019-02-27 07:45 | Day surgery (SDC) | payer MEDICARE, OTHER ==
[2019-02-25 15:18] VITALS: BMI 35.9
[2019-02-27 08:17] VITALS: RESP 16; TEMP 97
--- NOTE | 2019-02-27 09:52 | P.PCN ---
Date of Procedure: 02/27/19 Procedure(s) Performed: PREOP DIAGNOSIS: 1- Lumbar postlaminectomy syndrome. 2-myofascial pain syndrome cervical area . POSTOP DIAGNOSIS:1- Lumbar postlaminectomy syndrome. 2-myofascial pain syndrome cervical area . PROCEDURE: 1-Caudal epidural steroid injection with epidurolysis and epidurogram under fluoroscopic guidance. 2-caudal epidurogram. 3-trigger point injection cervical area and one on the left trapezius muscle and left rhomboid muscle ( 2 trigger points injected ) ANESTHESIA: Local with 1% lidocaine 5 ml only ( No IV sedations ) EBL: Minimal. PROCEDURE INDICATION: The patient with post-laminectomy syndrome with low back pain and radiculopathy radiating down in both legs, here for a caudal epidural steroid injection with epidurolysis. And also patient had multiple trigger point identified in the preop holding area for this reason he will be good candidate to have trigger point injection PROCEDURE DESCRIPTION: The patient was seen and identified in the preoperative area. Risks, benefits, complications, and alternatives were discussed with the patient. The patient agreed to proceed with the procedure and signed the consent , patient requested no sedation, and vital signs were stable. Patient was taken to the OR and time out was completed. The patient was placed in the prone position on procedure table and a pillow was placed under the abdomen to reduce lumbar lordosis. The lumbosacral area was prepped and draped in the usual sterile fashion. Vital signs were closely monitored during the procedure. lateral view and the anterior-posterior plates of the sacrum were identified with infiltration of the area overlying the sacral hiatus with 1% lidocaine .A 17 gauge RK epidural needle was used to advance through the sacral hiatus into the caudal epidural space. Omnipaque 180 dye. 2cc was injected and the position of the needle was verified to be in the midline. A Racz catheter was introduced into the epidural space and was advanced towards the L5-S1 interspace under direct fluoroscopic guidance. Multiple passes were made with the catheter for lysis of epidural adhesions. Depo-Medrol 80 mg with 3ml of preservative free Lidocaine 1% and 5 ml of preservative free normal saline was injected slowly. Additional spread was seen to L4 under fluoroscopy. The needle and the catheter were withdrawn intact. EPIDUROGRAM: Omnipaque 180 mg dye 2 ml was injected with spread of the dye into the caudal epidural space and with spread cutoff at L5 prior to epidurolysis. Post epidurolysis dye 2 ml was injected and spread was seen to L3-4. Then after that the trigger point injection done sterile technique cervical area prepped with chloraprep, one trigger point in the left side trapezius muscle and the left-sided rhomboid muscle,, each one of them injected with lidocaine 1% 2 mL injected at each trigger point using 25-gauge needle injection done after negative aspiration and there was no paresthesia during the injection, patient tolerated the procedure well without any complications COMPLICATIONS: None. DISPOSITION / PLANS: The patient was placed in a supine position and transferred to the recovery area in a stable condition for observation and was discharged from the recovery room after meeting discharge criteria. Home discharge instructions given to the patient by the staff. The patient was reexamined prior to discharge. The patient will schedule a follow up in the clinic in a few weeks.
[2019-02-27 09:53] VITALS: BP 131/88; PULSE 71
--- NOTE | 2019-02-27 11:09 | FL ---
EXAMINATION TYPE: FL guided pain mgmt statistic DATE OF EXAM: 02/27/2019 COMPARISON: NONE HISTORY: Back pain TECHNIQUE: Fluoroscopy. FINDINGS: Fluoroscopic guidance was provided during procedure performed by Dr. Lindsey. A total of 13 seconds of fluoroscopic time was utilized during the procedure and 2 spot images was acquired duri ng caudal injection. IMPRESSION: As Above.
== END 2019-02-27 09:59 | disposition home or self-care (01) ==
LOC: ORPAIN 07:45
PROVIDERS: ATTEND Student in an Organized Health Care Education/Training Program
DX: M96.1 Postlaminectomy syndrome, not elsewhere classified (principal); M54.16 Radiculopathy, lumbar region; M79.18 Myalgia, other site; G89.29 Other chronic pain; M54.12 Radiculopathy, cervical region; Z79.891 Long term (current) use of opiate analgesic; Z79.899 Other long term (current) drug therapy
CPT/HCPCS: 20552; 62264; J1030; Q9966; C1894

== ENCOUNTER → 2019-03-27 | Outpatient (CLI) | payer MEDICARE, OTHER ==
[2019-03-27 12:57] VITALS: BP 149/98; PULSE 86; RESP 16
--- NOTE | 2019-03-28 09:45 | P.PAINPG ---
Subjective Progress Note Date: 03/27/19 This is a follow-up visit for this 58 years old male with a history of severe and chronic low back pain, he is diagnosed with failed back surgery syndrome, his pain management between interventional pain procedure and medication management he uses oxycodone 15 mg every 6 hours and he get prescription refills from his primary care, a few weeks ago we have done a caudal epidural steroid injection with lysis of epidural adhesions he get good pain relief, until recently, currently patient complaining of severe low back pain with radiation to the lower extremity, patient reported that the pain started after he drove for 10 hours , 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 Denies any change in the bowel movement or urination Objective - Vital Signs Vital signs: Vital Signs Temp Pulse 86 03/27/19 12:53 Resp 16 03/27/19 12:53 BP 149/98 03/27/19 12:53 Pulse Ox - Exam -Constitutiona : Cooperative , not in acute distress . -HEENT : nech : supple , no Lymphadenopathy , normal thyroid size . eyes : no ptosis , no icterus, no photophobia . . - neurologic : Cranial nerve II to XII intact , no focal neurological deffecit . -psychatric : alert , oriented X 3 , appropriate affect , intact judgment and insight . -Lymphatic : no Lymphadenopathy . - musculoskeltal : Cervical Spine motor stregnth in the deltoid and biceps, normal right side , normal Left side motor stregnth biceps and the wrist extensors normal right side ,normal left side . motor stregnth in the triceps muscle . normal Right side , normal Left side Lumber spine moter stegnth lower extremities ,thigh and legs 5/5 Right side , 5/5 Left side deep tendon reflexes : normal Knee Jerk , normal ankle Jerk positive lumber facet Loading Test Range of motion of the lumbar spine Flexion 30 degrees, extension 10 degrees strait leg raising test , positive at 30 degree Fabere test positive RT and positive LT . Assessment and Plan Plan: Assessment and plan= failed back surgery syndrome and lumbar area Patient could benefit from caudal epidural steroid injection with lysis of epidural adhesions under fluoroscopy guidance and because we have done 3, but he steroid injection this year we tried to delay the procedure as long as possible, avoid any steroid overdoes, patient will try to use NSAIDs for a few days and if it didn't work then we will schedule patient to have caudal epidural with lysis of epidural adhesions, Patient should continue his current medication oxycodone 15 mg every 6 hours and he is getting prescription refills from his primary care Time with Patient: Less than 30 PQRS Measure Charge Sheet Measure #130: Documentation of Current Meds in Medical Chart: Patient's medications documented in chart Measure #226: Tobacco Use: Screen & Cessation Intervention: Pt not a tobacco user Measure #111: Pneumonia Vaccination: Pneumococcal vaccine NOT administered or previously given Measure #47: Advance Care Plan: Advance care planning discussed & documented, pt chose/unable to give Measure #412: Opioid Treatment Agreement: No documentation of signed opioid treatment agreement Measure #408: Opioid Therapy Follow-up Evaluation: Patient had NO f/u eval minimum every 3 months during opioid therapy Measure #317: Preventitive Care & Scrn High Bld Press & F/U: Pre-hypertensive or hypertensive BP documented, pt will f/u with PCP Measure #128: Body Mass Index (BMI) Screening & Follow-up: BMI documented ABOVE normal parameters - f/u documented Measure #131: Pain Assessment & Follow-up: Pain positive & plan documented, Follow-up scheduled Measure #431: Unhealthy Alcohol Use Preventative Care & Scrn: Patient not identified as an unhealthy alcohol user PQRS Narrative: Smoking Status Never smoker Narcotic Agreement Date Signed 10/21/12 Blood Pressure 149/98 Pain Intensity [Lower Back] 7 Scale Used Numeric (1 - 10) Hx Alcohol Use (MH) Yes: social Home Medications: Ambulatory Orders oxyCODONE HCL 15 mg PO QID 10/05/15 Bisoprolol/Hydrochlorothiazide [Bisoprolol-Hctz 5-6.25 mg Tab] 1 tab PO DAILY 09/05/17 Diazepam [Valium] 2 mg PO BID PRN 04/30/18 Mirabegron [Myrbetriq] 10 mg PO DAILY 04/30/18 Controlled Substance Measures - Controlled Substance Measures Is patient prescribed a controlled substance at discharge?: No
== END | disposition home or self-care (01) ==
LOC: PNWHC3 12:21
PROVIDERS: ATTEND Specialist
DX: M96.1 Postlaminectomy syndrome, not elsewhere classified (principal); Z79.1 Long term (current) use of non-steroidal anti-inflammatories (NSAID); Z79.899 Other long term (current) drug therapy
CPT/HCPCS: 99211

== ENCOUNTER → 2019-12-16 | Outpatient (CLI) | payer MEDICARE, OTHER ==
[2019-12-16 13:12] VITALS: BP 130/89; PULSE 99; RESP 18
--- NOTE | 2019-12-16 13:49 | P.PAINPG ---
Subjective Progress Note Date: 12/16/19 This is a follow-up visit for this 59 years old male with a history of severe and chronic low back pain, he is diagnosed with failed back surgery syndrome, his pain managed between interventional pain procedure ,and medication management, he uses oxycodone 15 mg every 6 hours and he get prescription refil ls from his primary care, previously we have done caudal epidural steroid injection with lysis of epidural adhesions he get good pain relief, currently patient complaining of severe low back pain with radiation to the left buttock, and occasional radiation to the posterior aspect of his lower extremity mainly on the left side, he denies any motor or sensory deficit and he reported that the pain is severe in the low back area, he denies any fever or night sweats. Denies any change in the bowel movement or urination Objective - Vital Signs Vital signs: Vital Signs Temp Pulse 99 12/16/19 13:07 Resp 18 12/16/19 13:07 BP 130/89 12/16/19 13:07 Pulse Ox - Exam Physical Examinations : -Constitutiona : Cooperative , not in acute distress . -HEENT : nech : supple , no Lymphadenopathy , normal thyroid size . : eyes : no ptosis , no icterus, no photophobia . - neurologic : Cranial nerve II to XII intact , no focal neurological deffecit . -psychatric : alert , oriented X 3 , appropriate affect , intact judgment and insight . -Lymphatic : no Lymphadenopathy . - musculoskeltal : Lumber spine moter stegnth lower extremities ,thigh and legs 5/5 Right side , 5/5 Left side deep tendon reflexes : normal Knee Jerk , normal ankle Jerk lumber facet Loading Test = negative Right , positive Left Range of motion of the lumbar spine Flexion 30 degrees, extension 10 degrees strait leg raising test = positive at 60 degree on the left side and is negative on the right side Fabere test= negative Right , and positive LT . Sever tenderness over the Sacroiliac joint on the Left sides Gaenslen test= negative right ,and positive left . Seated flexion test= negative right ,and positive Left . - Constitutional Constitutional Comment(s): Patient had an MRI of the lumbar spine done at [facility]= history of surgical fusion at L5-S1 and, L4 5, multilevel lumbar facet arthropathy Assessment and Plan Plan: Assessment and plan=1-left sacroiliitis. 2-lumbar spondylosis with lumbar facet arthropathy. 3-Failed back surgery syndrome and lumbar area. Patient could benefit from left-sided sacroiliac joint steroid injections under fluoroscopy guidance, Patient should continue to use his current medication of oxycodone and is getting prescription refills from his primary care Time with Patient: Less than 30 PQRS Measure Charge Sheet Measure #130: Documentation of Current Meds in Medical Chart: Patient's medications documented in chart Measure #226: Tobacco Use: Screen & Cessation Intervention: Pt not a tobacco user Measure #111: Pneumonia Vaccination: Pneumococcal vaccine administered or previously received Measure #47: Advance Care Plan: Advance care planning discussed & documented, pt chose/unable to give Measure #412: Opioid Treatment Agreement: No documentation of signed opioid treatment agreement Measure #408: Opioid Therapy Follow-up Evaluation: Patient had NO f/u eval minimum every 3 months during opioid therapy Measure #317: Preventitive Care & Scrn High Bld Press & F/U: Normal blood pressure, f/u not required Measure #128: Body Mass Index (BMI) Screening & Follow-up: BMI documented ABOVE normal parameters - f/u documented Measure #131: Pain Assessment & Follow-up: Pain positive & plan documented, Follow-up scheduled Measure #431: Unhealthy Alcohol Use Preventative Care & Scrn: Patient not identified as an unhealthy alcohol user PQRS Narrative: Smoking Status Never smoker Narcotic Agreement Date Signed 10/21/12 Blood Pressure 130/89 Pain Intensity [Lower Back] 6 Scale Used Numeric (1 - 10) Hx Alcohol Use (MH) Yes: social Home Medications: Ambulatory Orders oxyCODONE HCL 15 mg PO QID 10/05/15 Bisoprolol/Hydrochlorothiazide [Bisoprolol-Hctz 5-6.25 mg Tab] 1 tab PO DAILY 09/05/17 Diazepam [Valium] 2 mg PO BID PRN 04/30/18 Mirabegron [Myrbetriq] 10 mg PO DAILY 04/30/18 Sertraline [Zoloft] 50 mg PO DAILY 11/20/19 Controlled Substance Measures - Controlled Substance Measures Is patient prescribed a controlled substance at discharge?: No
== END | disposition home or self-care (01) ==
LOC: PNWHC3 12:45
PROVIDERS: ATTEND Specialist
DX: M47.816 Spondylosis without myelopathy or radiculopathy, lumbar region (principal); M46.1 Sacroiliitis, not elsewhere classified; M96.1 Postlaminectomy syndrome, not elsewhere classified; Z79.891 Long term (current) use of opiate analgesic; Z79.899 Other long term (current) drug therapy
CPT/HCPCS: 99211

== ENCOUNTER 2020-01-13 07:20 | Day surgery (SDC) | payer MEDICARE, OTHER ==
[2020-01-12 11:12] VITALS: BMI 38.0
[2020-01-13 07:42] VITALS: TEMP 96
[2020-01-13] MEDS ORDERED: methylPREDNISolone ACETATE 40 MG/ML 1 ML VIAL ONE (08:16)
[2020-01-13] MEDS ORDERED: ROPIVACAINE 5MG/ML 20ML VIAL ONE (08:16)
--- NOTE | 2020-01-13 08:33 | P.PCN ---
Date of Procedure: 01/13/20 Procedure(s) Performed: Procedure= Left sacroiliac joints steroid injection under fluoroscopy guidance (fluoroscopy image stored on file in the radiology Department ) Preoperative diagnosis= 1-left sacroiliitis 2-lumbar failed back surgery syndrome 3-lumbar facet arthropathy Postoperative diagnosis=Same as preop Diagnosis . Complication = none Condition= stable Anesthesia= only local infiltration with ropivacaine 0.5% 3 mL Indication for the procedure= patient complaining of low back pain , examination was positive for severe tenderness over the sacroiliac joints on the left side and patient diagnosed with sacroiliitis, for this reason he was good candidate for sacroiliac joint steroid injection. Description of the procedure= procedure risk and benefits discussed with the patient, including but not limited, risk of infection and bleeding, and ALLERGIC reaction to the medication and not complete pain relief and patient agreed with the preceding patient taken to the operating room, placed in prone position or standard monitors applied to the patient then after induction of anesthesia back prepped with chlorhexidine 3 times , Then the left sacroiliac joint steroid injection done under strict sterile technique local infiltration of the skin and subcutaneous tissue at the location of the left sacroiliac joint then a 22-gauge Quincke Needle advanced slowly under fluoroscopy time placed in the left sacroiliac joint, needle placement confirmed with AP and oblique and lateral view then after appropriate needle placement confirmed and after negative aspiration 0.5% Marcaine 3 mL and 40 mg of Depo-Medrol injected in the left sacroiliac joint after negative aspiration patient tolerated the procedure well that any complications and she will follow up in clinic 3 weeks
[2020-01-13 08:35] VITALS: RESP 18
[2020-01-13 08:48] VITALS: BP 127/78; PULSE 67
--- NOTE | 2020-01-13 08:50 | FL ---
EXAMINATION TYPE: FL guided pain mgmt statistic DATE OF EXAM: 01/13/2020 HISTORY: Fluoroscopy time 6 seconds of fluoroscopy provided. IMPRESSION: 1. Fluoroscopy time.
== END 2020-01-13 09:03 | disposition home or self-care (01) ==
LOC: ORPAIN 07:20
PROVIDERS: ATTEND Specialist
DX: M46.1 Sacroiliitis, not elsewhere classified (principal); M96.1 Postlaminectomy syndrome, not elsewhere classified; Z88.8 Allergy status to other drugs, medicaments and biological substances
CPT/HCPCS: J1030; J2795; G0260; 27096

== ENCOUNTER 2020-02-05 06:06 | Day surgery (SDC) | payer MEDICARE, OTHER ==
[2020-02-03 11:58] VITALS: BMI 42.3
[2020-02-05 06:39] VITALS: TEMP 98
[2020-02-05] MEDS ORDERED: ROPIVACAINE 5MG/ML 20ML VIAL ONE (06:57)
[2020-02-05] MEDS ORDERED: methylPREDNISolone ACETATE 40 MG/ML 1 ML VIAL ONE (06:57)
--- NOTE | 2020-02-05 07:10 | P.PCN ---
Date of Procedure: 02/05/20 Procedure(s) Performed: Procedure= Left sacroiliac joints steroid injection under fluoroscopy guidance (fluoroscopy image stored on file in the radiology Department ) Preoperative diagnosis= 1-left sacroiliitis 2-lumbar failed back surgery syndrome 3-lumbar facet arthropathy Postoperative diagnosis=Same as preop Diagnosis . Complication = none Condition= stable Anesthesia= only local infiltration with ropivacaine 0.5% 3 mL Indication for the procedure= patient complaining of low back pain , examination was positive for severe tenderness over the sacroiliac joints on the left side and patient diagnosed with sacroiliitis, for this reason he was good candidate for sacroiliac joint steroid injection. Description of the procedure= procedure risk and benefits discussed with the patient, including but not limited, risk of infection and bleeding, and ALLERGIC reaction to the medication and not complete pain relief and patient agreed with the preceding patient taken to the operating room, placed in prone position or standard monitors applied to the patient then after induction of anesthesia back prepped with chlorhexidine 3 times , Then the left sacroiliac joint steroid injection done under strict sterile technique local infiltration of the skin and subcutaneous tissue at the location of the left sacroiliac joint then a 22-gauge Quincke Needle advanced slowly under fluoroscopy time placed in the left sacroiliac joint, needle placement confirmed with AP and oblique and lateral view then after appropriate needle placement confirmed and after negative aspiration 0.5% Marcaine 5 mL and 40 mg of Depo-Medrol injected in the left sacroiliac joint after negative aspiration patient tolerated the procedure well that any complications and she will follow up in clinic 3 weeks
[2020-02-05 07:23] VITALS: BP 143/89; PULSE 65; RESP 18
--- NOTE | 2020-02-05 09:30 | FL ---
EXAMINATION TYPE: FL guided pain mgmt statistic DATE OF EXAM: 02/05/2020 FLUOROSCOPY Fluoroscopy time of 8 seconds was used during left SI joint injection. 1 image/s document/s the proc edure.
== END 2020-02-05 07:28 | disposition home or self-care (01) ==
LOC: ORPAIN 06:06
PROVIDERS: ATTEND Specialist
DX: M46.1 Sacroiliitis, not elsewhere classified (principal); M96.1 Postlaminectomy syndrome, not elsewhere classified; M47.816 Spondylosis without myelopathy or radiculopathy, lumbar region; Z88.8 Allergy status to other drugs, medicaments and biological substances
CPT/HCPCS: J1030; J2795; G0260; 27096

== ENCOUNTER → 2020-03-15 | Outpatient (CLI) | payer MEDICARE, OTHER ==
[2020-03-15 13:11] VITALS: BP 144/90; PULSE 77; RESP 14; TEMP 98.1
--- NOTE | 2020-04-12 10:28 | P.PN ---
Subjective Progress Note Date: 03/15/20 This is a 59-year-old gentleman with history of chronic lower back pain with occasional radiation to the left lower extremity down to the mid calf area. The patient does not feel any paresthesia unless he is having severe pain with radiation to the left lower extremity. Most of his pain is in the left lower back and left buttock area. He did have multiple surgeries on his back previously. He takes oxycodone 15 mg twice a day prescribed by his primary care physician. He had caudal epidural steroid injection and sacroiliac joint injection previously and it looks like his last sacroiliac joint injection helped him with the pain. Patient denies new-onset weakness, bowel/bladder incontinence, or any other signs or symptoms of cauda equina syndrome. There are no signs of acute intoxication, and no indications of medication diversion or overuse. In addition to above, 13-point review of systems is also negative for chest pain, shortness of breath, changes in vision, changes in hearing, new onset weakness, abdominal pain, diarrhea, extreme fatigue, malaise, fever, skin changes, homicidal or suicidal ideation, or bowel or bladder incontinence. Vital Signs: Reviewed in EMR Gen: AAOx3, NAD HEENT: PERRLA,hearing grossly normal Pulm: resp unlabored Neck: supple, trachea midline Neuro exam of the lower extremities: Decreased left knee flexion and extension strength to 4 out of 5 but the rest of the muscle strength exam is within normal limits Straight leg raising test: Negative on the left side Positive tenderness around the left sacroiliac joint Tenderness in the paravertebral musculature: Neuro: CN II-XII grossly intact, Imaging: Reviewed in EMR/chart Assessment: Failed back surgery syndrome Left sacroiliitis/sacroiliac joint dysfunction Myofascial pain Morbid obesity Lumbar spondylosis without myelopathy Opioid dependence, the patient gets his oxycodone prescription from his primary care physician Plan: 1. Explanation: Opioid and psychological risk scores were reviewed. Diagnoses, prognoses, and multiple treatment options including but not limited to physical therapy, interventional therapies, adjuvant medical therapies, narcotic medication therapies, and surgery were discussed with the patient and all questions were answered to the patient's satisfaction. 2. Opioid agreement: Signed with the patient and the patient is warned not to use opioids while driving or before driving and not to combine opioids with be nzodiazepines or alcohol. 3. Counseling: The patient was counseled extensively on SMOKING CESSATION, BODY MASS INDEX, EXERCISE. Specifically, the patient was instructed regarding the importance of smoking cessation, obesity, and exercise in the context of both chronic pain and overall health. 4. Procedures: The patient will call us when his pain gets worse and then we can schedule him to have another left sacroiliac joint steroid injection 5. Consultations: None 6. Investigations: None 7. Medications: None 8. Disposition: Return to clinic as needed 9. Maps were reviewed and were appropriate.
== END | disposition home or self-care (01) ==
LOC: PNWHC3 12:34
PROVIDERS: ATTEND Anesthesiology
DX: M96.1 Postlaminectomy syndrome, not elsewhere classified (principal); M46.1 Sacroiliitis, not elsewhere classified; M47.816 Spondylosis without myelopathy or radiculopathy, lumbar region; M79.18 Myalgia, other site; E66.01 Morbid (severe) obesity due to excess calories; F11.20 Opioid dependence, uncomplicated
CPT/HCPCS: 99211

== ENCOUNTER 2020-05-11 06:33 | Day surgery (SDC) | payer MEDICARE, OTHER ==
[2020-05-07 14:59] VITALS: BMI 39.5
[2020-05-11 07:23] VITALS: TEMP 98.1
[2020-05-11] MEDS ORDERED: ROPIVACAINE 5MG/ML 20ML VIAL ONE (07:42)
[2020-05-11] MEDS ORDERED: TRIAMCINOLONE ACETONIDE 40 MG/ML 1 ML VIAL ONE (07:42)
--- NOTE | 2020-05-11 07:52 | P.PCN ---
Date of Procedure: 05/11/20 Surgeon: Ginny Vaz Pathology: none sent Condition: stable Disposition: PACU Description of Procedure: Preoperative diagnoses= sacroiliac joint dysfunction and sacroiliitis on the le ft side Postoperative diagnoses= same as preoperative diagnosis. Procedure= left sacroiliac joint steroid injection under fluoroscopic guidance. Anesthesia= local anesthesia only with lidocaine 1% Estimated blood loss=minimal. Procedure indication= the patient had a history of severe chronic low back pain, diagnosed with sacroiliitis and lumbar sacral facet arthropathy unresponsive to conservative treatment. Procedure description= the patient was seen and identified in the preoperative holding area, risks and benefits and alternative of the procedure and possible complications discussed with the patient, patient signed the consent. an IV was started, and vital signs were monitored and were stable throughout the procedure, patient was placed in the prone position or table and the lumbosacral area was prepped and draped with a sterile fashion, vital signs were closely monitored during the procedure.The sacroiliac joint was identified on the AP view of fluoroscopy then the C-arm was tilted to the contralateral oblique position to superimpose the anterior and posterior joint lines on each other and to have a unified joint line with the target point at the inferior one third of this line. I used 22-gauge 3-1/2 inch Quincke spinal needle for this procedure and after getting into the sacroiliac joint I injected 40 mg of Kenalog +2 MLS of Ropivacaine 0.5%. Patient tolerated the procedure well without any complication, The patient returned to supine position after the back was cleaned and a Band- Aid applied, the patient transported to recovery room in stable condition and he was monitored for 30 minutes before she was discharged home in stable condition . patient will follow up with the pain clinic in a few weeks. A copy of the needle placement was saved to the C-arm machine.
[2020-05-11 08:01] VITALS: BP 108/62; PULSE 84; RESP 16
--- NOTE | 2020-05-11 08:11 | FL ---
Fluoroscopy INDICATION: Pain FINDINGS: Fluoroscopy time: 4 seconds. Images obtained: 1. IMPRESSIONS: 1. Documentation of fluoroscopy.
== END 2020-05-11 08:10 | disposition home or self-care (01) ==
LOC: ORPAIN 06:33
PROVIDERS: ATTEND Anesthesiology
DX: G89.29 Other chronic pain (principal); M46.1 Sacroiliitis, not elsewhere classified; M53.3 Sacrococcygeal disorders, not elsewhere classified; M47.817 Spondylosis without myelopathy or radiculopathy, lumbosacral region; I10 Essential (primary) hypertension; E66.9 Obesity, unspecified; Z88.8 Allergy status to other drugs, medicaments and biological substances; Z68.41 Body mass index [BMI] 40.0-44.9, adult
CPT/HCPCS: J3301; J2795; G0260; 27096

== ENCOUNTER 2020-06-15 12:21 | Emergency (ER) | payer MEDICARE, OTHER ==
[2020-06-15 12:30] VITALS: RESP 18
[2020-06-15] MEDS ORDERED: DIPH,PERTUS(ACELL)TETVAC-LF 0.5 ML VIAL IM ONE (12:52)
--- NOTE | 2020-06-15 12:55 | ED ---
General Adult HPI - General Chief complaint: Fall Stated complaint: fall Time Seen by Provider: 06/15/20 12:40 Source: patient, RN notes reviewed Mode of arrival: ambulatory Limitations: no limitations - History of Present Illness Initial comments: Patient is a pleasant 39-year-old male presenting to the emergency department following fall. Fall occurred around 11 hours ago. Patient was taking out his trash. Patient thought there was another step but there wasn't. Patient tripped on asphalt. Patient sustained abrasions to his face and injured his right hand. No alcohol or drug use. Patient did not lose consciousness. No neck or back pain. No headache. No confusion. No speech problems. No weakness. No chest pain or dyspnea. No abdominal pain. - Related Data Home Medications Medication Instructions Recorded Confirmed oxyCODONE HCL 15 mg PO QID 10/05/15 06/15/20 Bisoprolol/Hydrochlorothiazide 1 tab PO DAILY 09/05/17 06/15/20 [Bisoprolol-Hctz 5-6.25 mg Tab] diazePAM [Valium] 2 mg PO TID PRN 04/30/18 06/15/20 Sertraline [Zoloft] 100 mg PO DAILY 11/20/19 06/15/20 traZODone HCL 100 mg PO HS 06/15/20 06/15/20 Allergies Allergy/AdvReac Type Severity Reaction Status Date / Time lorazepam AdvReac AGITATION Verified 06/15/20 13:14 Review of Systems ROS Statement: Those systems with pertinent positive or pertinent negative responses have been documented in the HPI. ROS Other: All systems not noted in ROS Statement are negative. Constitutional: Denies: fever Eyes: Denies: eye pain ENT: Denies: ear pain Respiratory: Denies: cough Cardiovascular: Denies: chest pain Endocrine: Denies: fatigue Gastrointestinal: Denies: abdominal pain Genitourinary: Denies: dysuria Musculoskeletal: Denies: back pain Skin: Reports: as per HPI Neurological: Denies: headache, weakness, numbness, paresthesias, confusion, abnormal gait, vertigo Past Medical History Past Medical History: Chest Pain / Angina, GERD/Reflux, Hyperlipidemia, Hypertension, Musculoskeletal Disorder, Osteoarthritis (OA), Sleep Apnea/CPAP/BIPAP Additional Past Medical History / Comment(s): Chronic back pain and back problems. Does not use CPAP. No current problems w/chest pain, sees Dr. Nair Sunday05-10-20 due to fingers both hands w/numbness History of Any Multi-Drug Resistant Organisms: MRSA Date of last positivie culture/infection: 2011 MDRO Source:: ABD. Past Surgical History: Appendectomy, Back Surgery, Cholecystectomy, Heart Catheterization, Hernia Repair, Orthopedic Surgery Additional Past Surgical History / Comment(s): Posterior lumbar decompression and fusion transforaminal lumbar interbody fusion L4-5. NECK AND LT SHOULDER SURG., PAIN CLINIC PROCEDURES. Past Anesthesia/Blood Transfusion Reactions: No Reported Reaction Additional Past Anesthesia/Blood Transfusion Reaction / Comment(s): NO FAMILY HX KNOWN - pt adopted. Past Psychological History: Depression Smoking Status: Never smoker Past Alcohol Use History: Occasional Past Drug Use History: None Reported - Past Family History Father Family Medical History: Unable to Obtain Additional Family Medical History / Comment(s): Pt was adopted. Mother Family Medical History: Unable to Obtain Additional Family Medical History / Comment(s): Pt was adopted. General Exam Limitations: no limitations General appearance: alert, in no apparent distress Head exam: Present: other (Facial abrasions) Eye exam: Present: normal appearance, PERRL, EOMI ENT exam: Present: normal oropharynx, other (Nasal tenderness. No nasal septal hematoma) Neck exam: Present: normal inspection. Absent: tenderness Respiratory exam: Present: normal lung sounds bilaterally Cardiovascular Exam: Present: regular rate, normal rhythm GI/Abdominal exam: Present: soft. Absent: tenderness Extremities exam: Present: full ROM, tenderness (Tenderness and swelling right hand near the third and fourth MCP and just proximal to this.), other (Distally the patient is neurovascular intact) Back exam: Present: normal inspection. Absent: vertebral tenderness Neurological exam: Present: alert. Absent: motor sensory deficit Psychiatric exam: Present: normal affect, normal mood Skin exam: Present: abrasion (Facial abrasion) Course Vital Signs 06/15/20 12:23 Temperature 98 F Pulse Rate 76 Respiratory 18 Rate Blood Pressure 122/79 O2 Sat by Pulse 94 L Oximetry Procedures - Orthopedic Splinting/Casting Injury #1 Side: right Upper Extremity Injury Location: short arm, hand Other Orthopedic Equipment: other (Examined postplacement with good alignment and neurovascularly intact) Medical Decision Making - Medical Decision Making Patient reevaluated and updated - Radiology Data Radiology results: image reviewed (Hand x-ray shows proximal fifth metacarpal fracture. Nasal x-ray shows no acute process) Disposition Clinical Impression: Fall, Hand fracture, right Disposition: HOME SELF-CARE Condition: Stable Instructions (If sedation given, give patient instructions): Hand Fracture (ED) Additional Instructions: Please follow-up with orthopedics in the next couple days for recheck. Also follow-up with primary care physician. Ice to affected area. Return for increased pain, hand problems, worsening symptoms or other concerns. [id number] Tylenol or Motrin as Is patient prescribed a controlled substance at d/c from ED?: No Referrals: Son Armas MD [Primary Care Provider] - 1-2 days Donnell Gibbs DO [Doctor of Osteopathic Medicine] - 1-2 days Time of Disposition: 14:30
--- NOTE | 2020-06-15 13:52 | XR ---
EXAMINATION TYPE: XR nasal bone DATE OF EXAM: 06/15/2020 COMPARISON: NONE HISTORY: 59-year-old male with fall and pain TECHNIQUE: 3 views FINDINGS: No depressed or angulated nasal bone fracture is identified on either side. The maxillary spine appea rs intact. Patient is edentulous. Nasal septum remains midline. IMPRESSION: No angulated or depressed nasal bone fracture is seen.
--- NOTE | 2020-06-15 13:55 | XR ---
EXAMINATION TYPE: XR hand complete RT DATE OF EXAM: 06/15/2020 COMPARISON: NONE HISTORY: 59-year-old male with fall and pain TECHNIQUE: 3 views FINDINGS: There is a comminuted intra-articular fracture at the fifth metacarpal base. Intra-articular extensio n into both the fourth-fifth intermetacarpal joint as well as the fifth CMC joint. Mild impaction. Ma rked dorsal soft tissue swelling is noted. IMPRESSION: Comminuted and mildly impacted intra-articular fracture base of the fifth metacarpal with associated soft tissue swelling.
[2020-06-15] MEDS ORDERED: ACET/COD 300 MG/30 MG STARTER PACK 6 TAB BTL PO STA (14:31)
[2020-06-15 15:04] VITALS: BP 143/82; PULSE 82; TEMP 97.9
== END 2020-06-15 15:03 | disposition home or self-care (01) ==
LOC: EC 12:21
DX: S62.306A Unspecified fracture of fifth metacarpal bone, right hand, initial encounter for closed fracture (principal); S00.81XA Abrasion of other part of head, initial encounter; F32.9 Major depressive disorder, single episode, unspecified; G47.33 Obstructive sleep apnea (adult) (pediatric); I20.9 Angina pectoris, unspecified; I10 Essential (primary) hypertension; Z79.891 Long term (current) use of opiate analgesic; Z79.899 Other long term (current) drug therapy; Z99.89 Dependence on other enabling machines and devices; Z88.8 Allergy status to other drugs, medicaments and biological substances; Z23 Encounter for immunization; Z90.49 Acquired absence of other specified parts of digestive tract; Z95.5 Presence of coronary angioplasty implant and graft; Z86.14 Personal history of Methicillin resistant Staphylococcus aureus infection; Z98.1 Arthrodesis status; W01.0XXA Fall on same level from slipping, tripping and stumbling without subsequent striking against object, initial encounter; Y93.89 Activity, other specified; Y92.009 Unspecified place in unspecified non-institutional (private) residence as the place of occurrence of the external cause
CPT/HCPCS: 29125; 70160; 90471; 90715; 99283

== ENCOUNTER → 2020-06-30 | Outpatient (CLI) | payer MEDICARE, OTHER ==
[2020-06-30 10:29] VITALS: BP 134/89; PULSE 62; RESP 20; TEMP 97.5
--- NOTE | 2020-06-30 10:56 | P.PN ---
Subjective Progress Note Date: 06/30/20 This is a 59-year-old gentleman with history of failed back surgery syndrome and chronic pain in the lower back with occasional radiation to the left leg down to the calf. The patient denies any paresthesia in the left lower extremity or any bowel or bladder dysfunction. The patient has been getting good relief of his pain after left sacroiliac joint steroid injection. The pain is mostly on the left side of his spine on the left buttock area. He still gets oxycodone from his primary care physician. The patient denies any illicit drug usage or any tobacco usage. Patient denies new-onset weakness, bowel/bladder incontinence, or any other signs or symptoms of cauda equina syndrome. There are no signs of acute intoxication, and no indications of medication diversion or overuse. In addition to above, 13-point review of systems is also negative for chest pain, shortness of breath, changes in vision, changes in hearing, new onset weakness, abdominal pain, diarrhea, extreme fatigue, malaise, fever, skin changes, homicidal or suicidal ideation, or bowel or bladder incontinence. Vital Signs: Reviewed in EMR Gen: AAOx3, NAD HEENT: PERRLA,hearing grossly normal Pulm: resp unlabored Neck: supple, trachea midline Neuro exam of the lower extremities: Normal muscle strength in the lower extremities bilaterally Straight leg raising test: Negative bilaterally Chris's test: Range of motion of the lumbar spine: Facet loading test: Tenderness in the paravertebral musculature: Positive on the lumbar paravertebral musculature Significant tenderness around the left sacroiliac joint Neuro: CN II-XII grossly intact, Imaging: Reviewed in EMR/chart Assessment: Failed back surgery syndrome Left sacroiliitis/sacroiliac joint dysfunction Myofascial pain Morbid obesity Lumbar spondylosis without myelopathy Opioid dependence, the patient gets his oxycodone prescription from his primary care physician Plan: 1. Explanation: Opioid and psychological risk scores were reviewed. Diagnoses, prognoses, and multiple treatment options including but not limited to physical therapy, interventional therapies, adjuvant medical therapies, narcotic medication therapies, and surgery were discussed with the patient and all questions were answered to the patient's satisfaction. 2. Opioid agreement: Signed with the patient and the patient is warned not to use opioids while driving or before driving and not to combine opioids with b enzodiazepines or alcohol. 3. Counseling: The patient was counseled extensively on SMOKING CESSATION, BODY MASS INDEX, EXERCISE. Specifically, the patient was instructed regarding the importance of smoking cessation, obesity, and exercise in the context of both chronic pain and overall health. 4. Procedures: Schedule for left sacroiliac joint steroid injection under fluoroscopic guidance. The patient understands that we have to keep a limited on steroid injection to avoid any steroid side effects. 5. Consultations: None 6. Investigations: None 7. Medications: None 8. Disposition: Proceed with the above-mentioned procedure 9. Maps were reviewed and were appropriate. Objective - Vital Signs Vital signs: Vital Signs Temp 97.5 F L 06/30/20 10:25 Pulse 62 06/30/20 10:25 Resp 20 06/30/20 10:25 BP 134/89 06/30/20 10:25 Pulse Ox 97 06/30/20 10:25
== END | disposition home or self-care (01) ==
LOC: PNWHC3 10:09
PROVIDERS: ATTEND Anesthesiology
DX: M96.1 Postlaminectomy syndrome, not elsewhere classified (principal); M46.1 Sacroiliitis, not elsewhere classified; M79.18 Myalgia, other site; E66.01 Morbid (severe) obesity due to excess calories; M47.816 Spondylosis without myelopathy or radiculopathy, lumbar region; F11.20 Opioid dependence, uncomplicated
CPT/HCPCS: 99211